=== PATIENT | male | born 1965 | race Caucasian/White ===

== ENCOUNTER 2017-09-07 15:47 | Emergency (ER) | payer OTHER, SELFPAY ==
[2017-09-07 15:49] VITALS: BP 143/83; PULSE 109; RESP 18; TEMP 36.7; O2SAT 98; BMI 25.8
--- NOTE | 2017-09-07 15:58 | RAD_ITS ---
STUDY: X-RAY CHEST REASON FOR EXAM: Male, 52 years old. Shortness of breath. TECHNIQUE: Portable AP COMPARISON: None. FINDINGS: The lungs are clear and expanded. There is no demonstrated pleural abnormality. Normal size heart. Normal mediastinum and kath. Normal visualized pulmonary arteries. Normal visualized aortic arch and descending thoracic aorta. Normal visualized thoracic spine. Normal visualized ribs, clavicles, and shoulders. There is no demonstrated abnormality of the visualized soft tissue structures of the upper abdomen. RAD/Chest 1 View (Portable) IMPRESSION: No acute cardiopulmonary process. Electronically Signed: Manju Connelly MD at 16:27 EST Tel , Service support ,
--- NOTE | 2017-09-07 15:59 | EKG12_ITS ---
Test Reason : DIZZY
--- NOTE | 2017-09-07 15:59 | CT_ITS ---
STUDY: CT ABDOMEN AND PELVIS WITH CONTRAST REASON FOR EXAM: Male, 52 years old. Nausea and vomiting for 2 days. RADIATION DOSAGE (If Supplied By Facility): CTDIvol = ( 15.35 ) mGy, DLP = ( 1067.24 ) mGycm TECHNIQUE: Transaxial images were obtained from the dome of the diaphragm to the symphysis pubis without oral contrast. 100 ml of Isovue 300 contrast was administered. Sagittal and coronal images were reconstructed. Individualized dose optimization techniques were used for this CT. COMPARISON: None. FINDINGS: The visualized lung bases are unremarkable. The visualized portions of the heart are within normal limits. There is decreased attenuation of the liver consistent with steatosis. Normal gallbladder and extrahepatic biliary system. Normal spleen. Normal pancreas. Normal bilateral adrenal glands. Normal right kidney. Normal left kidney. Normal visualized stomach. Normal small intestine. Normal colon. The appendix is visualized and appears normal. There is diffuse atherosclerotic calcification of the abdominal aorta, without a demonstrated aneurysm. Normal inferior vena cava. Normal retroperitoneum. Normal urinary bladder. Normal abdominal wall. There are diffuse degenerative changes of the visualized lumbar spine. There is a well-circumscribed round sclerotic focus within the left iliac wing that may reflect underlying bone island. CT/Abdomen/Pelvis WITH Contrast IMPRESSION: Fatty infiltration of the liver. Atherosclerosis. Degenerative changes. Electronically Signed: Manju Connelly MD at 18:24 EST Tel , Service support ,
--- NOTE | 2017-09-07 16:02 | ED.DCSUM_ITS ---
- ER Visit Summary Date of Service: 09/07/17 Chief Complaint: Abdominal pain History of Present Illness: The patient is a 52 M presenting with abdominal pain , nausea, vomiting. He states this started 2 days ago. He states he had 10 episodes of vomiting today. Denies blood in his emesis. Denies diarrhea or constipation. Denies urinary complaints. Complains of epigastric abdominal pain. He states he has felt dizzy today with no syncope. Denies chest pain. Denies sick contacts. Denies fever chills or other complaints. Physical Examination: Vitals are stable. Patient is afebrile. Alert no acute distress. HEENT exam is unremarkable. Neck is supple. Lungs are clear and equal bilaterally. Heart is regular rate and rhythm. Abdomen is soft epigastric tenderness, no guarding or rebound Extremities are unremarkable. Skin is warm and dry. Remainder of exam is unremarkable. Emergency Department Course and Treatment: Patient given IV fluids, Phenergan. He continues to complain of nausea and was given Zofran IV. EKG is sinus tachycardia rate 105. CBC chemistries unremarkable other than glucose 317. Liver lipase are normal. Troponin is negative. CT abdomen pelvis with p.o. and IV contrast shows fatty liver, degenerative changes. Chest x-ray shows no acute process. Patient continues to complain of epigastric discomfort. He is given morphine IV and GI cocktail with improvement. Repeat troponin was obtained and is negative. Patient is resting comfortably in the emergency department. He is given a prescription for Phenergan for home. Advised to follow-up with his primary care physician. Advised return to ED for worsening complaints. Disposition: Discharge home Impression: Epigastric abdominal pain, vomiting This note was generated with [employer] dictation software. It may contain incorrect words, spelling, and punctuation that were not noted in review of the chart prior to signing ED Disposition - Plan for ED Patient: Chief Complaint: Abd Pain Referrals: Delmer Pelaez MD [STAFF PHYSICIAN] -
[2017-09-07] MEDS: 0.9% Normal Saline 1,000 ML 1000 ML IV (16:17)
[2017-09-07 16:30] LABS: Absolute Lymphocyte Count 1.61 X10^3/ul (0.83-4.51); Absolute Neutrophil Count 6.4 X10^3/uL (2.0-7.7); Basophil# 0.02 X10^3/uL; Basophil% 0.2 % (0-1); Eosinophil# 0.07 X10^3/uL; Eosinophils% 0.8 % (0-5); Hematocrit 48.9 % (40-54); Lymphocyte # 1.61 X10^3/ul (4.0); Lymphocyte % 18.7 % (19-41); Mean Corp Hgb Conc 34.8 g/gl (32-36); Mean Corpuscular Hgb 30.6 pg (27.0-32.0); Mean Corpuscular Volume 88.1 fL (80-94); Mean Platelet Vol. 10.8 fl (6.2-12.0); Monocyte# 0.51 X10^3/uL; Monocyte% 5.9 % (0-10); Neutrophil % 74.3 % (47-70); Platelet Count 196 K/mm3 (150-450); RBC Distribution Width CV 12.4 % (11.6-14.6); Red Blood Count 5.55 M/mm3 (4.6-6.2); White Blood Count 8.6 K/mm3 (4.4-11.0)
[2017-09-07 16:41] LABS: POSITIVE COUNT NO; POSITIVE DIFFERENTIAL NO; POSITIVE MORPHOLOGY NO
[2017-09-07 16:55] LABS: AST(SGOT) 16 U/L (15-37); Alanine Aminotransfer ALT/SGPT 53 U/L (16-61); Albumin, Serum 4.1 g/dL (3.2-5.0); Alkaline Phosphatase 98 U/L (45-117); Anion Gap 11 (5-15); BUN 14 mg/dL (7-18); BUN/Creat Ratio 16.8 RATIO (10-20); Bilirubin, Direct 0.22 mg/dL (0.00-0.30); Calcium,Total 8.9 mg/dL (8.5-10.1); Chloride 97 mmol/L (98-107); Creatinine, Serum 0.83 mg/dL (0.70-1.30); EST Glomerular Filtration Rate 102 mL/min (>60); Est Glom Filt Rate - Afr Amer 123 mL/min (>60); Estimated Creatinine Clearance 98.43 ml/min; Globulin 3.7 g/dL (2.2-4.2); Glucose 317 mg/dL (74-106); Lipase 94 U/L (73-393); Potassium 3.7 mmol/L (3.5-5.1); Protein, Total 7.8 g/dL (6.4-8.2); Sodium Level 136 mmol/L (136-145)
[2017-09-07] MEDS: Ondansetron 4 MG/2 ML Vial IV ×2 (17:01→19:38)
[2017-09-07 19:30] VITALS: BP 163/93; PULSE 100; RESP 18; O2SAT 98
--- NOTE | 2017-09-07 20:25 | ED.DEP ---
ED Disposition - Plan for ED Patient: Chief Complaint: Abd Pain Instructions: ED Abdominal Pain Unkn Cause Prescriptions: ProMETHAzine [Phenergan] 25 mg PO Q6H PRN PRN #10 tablet PRN Reason: Nausea Referrals: Delmer Pelaez MD [STAFF PHYSICIAN] - Christoph Cody MD [Primary Care Provider] -
[2017-09-07 20:31] VITALS: BP 154/70; PULSE 95; RESP 18; O2SAT 98
== END 2017-09-07 20:32 | disposition home or self-care (01) ==
LOC: ED 16:31
PROVIDERS: Emergency Provider Emergency Medicine; Family Provider Internal Medicine; PCP Internal Medicine
DX: R10.13 Epigastric pain (principal); R11.2 Nausea with vomiting, unspecified; K76.0 Fatty (change of) liver, not elsewhere classified; E11.9 Type 2 diabetes mellitus without complications; Z79.84 Long term (current) use of oral hypoglycemic drugs; Z79.899 Other long term (current) drug therapy
CPT/HCPCS: 71045; 74177; 80048; 80076; 83690; 84484; 85025; 93005; 96361; 96374; 96375; 96376; 99284; J7030; J7050; Q9967; J2405

== ENCOUNTER 2021-01-14 15:04 | Emergency (ER) | payer OTHER, SELFPAY ==
[2021-01-14 15:05] VITALS: BP 146/84; PULSE 110; RESP 18; TEMP 36.7; O2SAT 99; BMI 24.0
[2021-01-14 15:08] VITALS: BP 146/84; PULSE 109; RESP 18; TEMP 36.7; O2SAT 97
--- NOTE | 2021-01-14 15:43 | CT_ITS ---
STUDY: CT ABDOMEN AND PELVIS WITH CONTRAST REASON FOR EXAM: Male, 55 years old. Abdominal pain -- IV PO Contrast RADIATION DOSAGE (If Supplied By Facility): CTDIvol = ( 10.40 ) mGy, DLP = ( 552.03 ) mGycm TECHNIQUE: Transaxial images were obtained from the dome of the diaphragm to the symphysis pubis without oral contrast. Oral and amp; IV Gastrografin and amp; 100mL Isovue-300 was administered. Sagittal and coronal images were reconstructed. Individualized dose optimization techniques were used for this CT. COMPARISON: None. FINDINGS: The visualized lung bases are unremarkable. The visualized portions of the heart are within normal limits. Normal liver. Normal gallbladder and extrahepatic biliary system. Normal spleen. Normal pancreas. Normal bilateral adrenal glands. Normal right kidney. Normal left kidney. Normal visualized stomach. Normal small intestine. Normal colon. There is non-visualization of the appendix. Normal abdominal aorta. Normal inferior vena cava. Normal retroperitoneum. Distended urinary bladder. Prominent heterogeneous prostate Normal abdominal wall. Normal osseous structures. CT/Abdomen/Pelvis WITH Contrast IMPRESSION: No acute intra-abdominal process is identified. Distended urinary bladder is nonspecific consider outlet obstruction. Enlarged heterogeneous prostate may be the source of such an outlet obstruction. Prominent stool burden. Electronically Signed: Frantz William MD at 17:59 EDT Tel , Service support ,
[2021-01-14] MEDS: 0.9% Normal Saline 1,000 ML 1000 ML IV (16:00)
[2021-01-14] MEDS: Ondansetron 4 MG/2 ML Vial IV (16:00)
--- NOTE | 2021-01-14 16:07 | EDS_ITS ---
HPI History of Present Illness Chief Complaint: General Illness Informant: patient Onset/Context/Timing Onset: Yesterday Context: Sudden Onset Timing: Continuous Quality: Lightheadedness Location: Generalized Worsened by: Standing Relieved by: Nothing Associated Symptoms Associated Symptoms: Dry heaves Narrative Narrative: Patient presents with nausea, lightheadedness, and dizziness that began yesterday. Patient states he feels lightheaded all over. Patient states this is worse with standing. Patient admits to some nausea and dry heaves. Patient denies any hematemesis or coffee-ground emesis. Patient also states he has had a 15 to 20 pound weight loss in the past month. Patient states he has been out of his Metformin because his primary care physician retired and he has not established with a new primary care physician. Patient states that he has been monitoring his sugars and controlling them with his diet. [facility] Medical History (Updated 01/14/21 @ 18:[address] Owen Hebert DO) Diabetes History of open sigmoidectomy Hypercholesteremia Home Medications metformin 500 mg PO DAILY 09/07/17 [History Last Taken Unknown] pravastatin 20 mg PO DAILY 09/07/17 [History Last Taken Unknown] promethazine 25 mg PO Q6H PRN PRN #10 tablet 09/07/17 [Rx Last Taken Unknown] ondansetron 4 mg PO Q8H PRN PRN #10 tab 01/14/21 [Rx Last Taken Unknown] Allergy/AdvReac Type Severity Reaction Status Date / Time No Known Allergies Allergy Verified 09/07/17 15:51 Social History Smoking Status: Former smoker ROS ROS ED Constitutional Constitutional ED: Reports chills and subjective; Denies fever(s) Eyes Eyes: Denies blurry vision or change in vision ENT ENT ED: Denies rhinorrhea or sore throat Cardiovascular Cardiovascular: Denies chest pain or palpitations Respiratory/Chest Respiratory/Chest: Denies cough or dyspnea Gastrointestinal Gastrointestinal: Reports nausea and vomiting Genitourinary Genitourinary ED: Denies dysuria or hematuria Musculoskeletal Musculoskeletal: Denies back pain or neck pain Integumentary Denies abscess or rash Neurologic Neurologic: Reports weakness; Denies headache(s) Allergic/Immunologic Allergic/Immunologic ED: Denies mouth swelling or urticaria EXAM Physical Exam Const Vital Signs: 01/14/21 15:05 01/14/21 15:08 01/14/21 15:37 Temperature 98.0 F 98.0 F Temperature Source Temporal Temporal Pulse Rate 110 H 109 H Respiratory Rate 18 18 Respiratory Effort Normal Non-Labored Respiratory Pattern Normal Blood Pressure 146/84 H 146/84 H Blood Pressure Mean 104 104 Pulse Ox 99 97 Oxygen Delivery Method Room Air Room Air Positive well nourished and well developed General Appearance ED: well developed HEENT Reports moist mucous membranes Neck supple and no JVD Resp normal respiratory effort and clear to auscultation bilaterally Cardio regular rate, regular rhythm and no murmurs GI normal to inspection, nondistended, normoactive bowel sounds Palpation: soft and tender suprapubic; Negative for guarding or rebound tenderness present Extremity normal to inspection General Extremety ED: Negative for edema or tenderness General Extremity: Negative for edema Neuro oriented x3, CN's II-XII intact bilaterally and no sensory deficits noted Sensorium / Orientation: alert Motor Exam: strength 5/5 throughout Psych mental status grossly normal Skin no rashes or lesions noted MDM MDM MDM Narrative Medical decision making narrative: Patient was given IV fluids and Zofran. CBC shows a slight leukocytosis of 11.8. Comprehensive metabolic profile was within normal limits with the exception of a slightly elevated glucose of 223. Anion gap was normal. Lipase was normal. Urinalysis does not show any evidence of urinary tract infection. CT scan of the abdomen pelvis was obtained. There is no acute intra-abdominal process noted. There is a distended bladder. Because of this a bladder scan was performed. There is over 800 cc of urine in the bladder. Patient is resting comfortably. Patient was instructed to follow-up with his primary care physician in 5 to 7 days. Patient understood and was agreeable with the plan. All questions were answered. Lab Data Attestation: I reviewed the patient's lab results. Labs: Laboratory Results - last 24 hr 01/14/21 01/14/21 01/14/21 15:50 15:57 15:57 WBC 11.8 H RBC 5.60 Hgb 16.4 Hct 47.1 MCV 84.1 MCH 29.3 MCHC 34.8 RDW Std Deviation 36.4 RDW Coeff of Celia 12.1 Plt Count 286 MPV 9.4 Immature Gran % (Auto) 0.500 Neut % (Auto) 85.4 H Lymph % (Auto) 10.3 L [place] % (Auto) 3.6 Eos % (Auto) 0.0 Baso % (Auto) 0.2 Absolute Neuts (auto) 10.1 H Absolute Lymphs (auto) 1.22 Nucleated RBC % 0 Sodium 137 Potassium 3.5 Chloride 98 Carbon Dioxide 29.0 Anion Gap 10 BUN 14 Creatinine 0.77 Estim Creat Clear Calc 102.40 Est GFR (MDRD) Af Amer 134 Est GFR (MDRD) Non-Af 111 BUN/Creatinine Ratio 18.3 Glucose 223 H Calcium 9.1 Total Bilirubin 0.70 AST 13 L ALT 24 Alkaline Phosphatase 87 Total Protein 7.6 Albumin 3.9 Globulin 3.7 Albumin/Globulin Ratio 1.1 Lipase 43 L Urine Color Yellow Urine Clarity Sl. Cloudy Urine pH 6.5 Ur Specific [place] 1.015 Urine Protein 30 H Urine Glucose (UA) 1000 H Urine Ketones 150 A* Urine Occult Blood Negative Urine Nitrite Negative Urine Bilirubin Negative Urine Urobilinogen 1 H Ur Leukocyte Esterase Negative Urine RBC 0 SEEN Urine WBC 0 SEEN Ur Squamous Epith Cells 0-5 SEEN Amorphous Sediment 1+ URATE Urine Bacteria 0 SEEN Hyaline Casts 0-5 SEEN Urine Mucus 3+ Radiography Diagnostic Testing: Radiology Impression Abdomen/Pelvis CT 01/14/21 15:43 IMPRESSION: No acute intra-abdominal process is identified. Distended urinary bladder is nonspecific consider outlet obstruction. Enlarged heterogeneous prostate may be the source of such an outlet obstruction. Prominent stool burden. Electronically Signed: Frantz William MD at 17:59 EDT Tel , Service support , Discharge Plan Triage Chief Complaint: General Illness ED Provider: Owen Hebert Dx/Rx/DC Orders Clinical Impression: Intermittent lightheadedness, Abdominal pain, Urinary retention Instructions: ED Dizziness, Uncertain Cause, ED Urinary Retention, Male Prescriptions: New ondansetron [ondansetron] 4 MG tablet 4 mg PO Q8H PRN PRN (Reason: Nausea) Qty: 10 RF: 0 No Action pravastatin 20 MG tablet 20 mg PO DAILY RF: 0 metformin 500 MG tablet 500 mg PO DAILY RF: 0 promethazine 25 MG tablet 25 mg PO Q6H PRN PRN (Reason: Nausea) Qty: 10 RF: 0 Primary Care Provider: Christoph Cody Referrals: Christoph Cody MD [Primary Care Provider] - 3-5 Days Disposition Disposition: Home, self care
[2021-01-14 16:08] LABS: Bacteria 0 SEEN /hpf (None Seen); Red Blood Cells-Urine 0 SEEN /hpf (0-5); White Blood Cells 0 SEEN /hpf (0-5)
[2021-01-14 16:10] LABS: Absolute Lymphocyte Count 1.22 X10^3/uL (0.83-4.51); Absolute Neutrophil Count 10.1 X10^3/uL (2.0-7.7); Basophil# 0.02 X10^3/uL; Basophil% 0.2 % (0-1); Hematocrit 47.1 % (40-54); Hemoglobin 16.4 g/dL (13.0-16.5); Lymphocyte # 1.22 X10^3/ul (0.83-4.51); Lymphocyte % 10.3 % (19-41); Mean Corp Hgb Conc 34.8 g/dL (32-36); Mean Corpuscular Hgb 29.3 pg (27.0-32.0); Mean Corpuscular Volume 84.1 fL (80-94); Mean Platelet Vol. 9.4 fl (6.2-12.0); Monocyte# 0.42 X10^3/uL; Monocyte% 3.6 % (0-10); NRBC Flagged by Analyzer 0 % (0-5); Neutrophil # 10.07 X10^3/uL (2.7-7.7); Neutrophil % 85.4 % (47-70); Platelet Count 286 K/mm3 (150-450); RBC Distribution Width CV 12.1 % (11.6-14.6); RBC Distribution Width SD 36.4 fl (35.1-43.9); White Blood Count 11.8 K/mm3 (4.4-11.0)
[2021-01-14 16:14] LABS: Color, Urine Yellow (Yellow); Glucose, Dipstick 1000 mg/dl (Normal); Leukocyte Esterase-Dipstick Negative /ul (Negative); Nitrite-Dipstick Negative (Negative); Occult Blood-Urine Negative /ul (Negative); Protein-Dipstick 30 mg/dl (Negative); Specific Gravity, Urine 1.015 (1.002-1.030); Urine Bilirubin Dipstick Negative (Negative); Urine Clarity Sl. Cloudy (Clear); Urine Urobilinogen 1 mg/dl (Normal); Urine pH 6.5 (5.0 - 8.0)
[2021-01-14 16:17] LABS: Ketone-Dipstick 150 mg/dl (Negative)
[2021-01-14 16:22] LABS: Amorphous Sediment 1+ URATE; Hyaline Cast 0-5 SEEN /lpf (0-5); Mucous, Urine 3+ /hpf (<or=2+); Squamous Epithelial Cells - UA 0-5 SEEN /hpf (0-5)
[2021-01-14 16:42] LABS: ALB/GLOB Ratio 1.1 RATIO (0.9-2.4); AST(SGOT) 13 U/L (15-37); Alanine Aminotransfer ALT/SGPT 24 U/L (16-61); Albumin, Serum 3.9 g/dL (3.2-5.0); Alkaline Phosphatase 87 U/L (45-117); Anion Gap 10 (5-15); BUN 14 mg/dL (7-18); BUN/Creat Ratio 18.3 RATIO (10-20); Calcium,Total 9.1 mg/dL (8.5-10.1); Chloride 98 mmol/L (98-107); Creatinine, Serum 0.77 mg/dL (0.70-1.30); EST Glomerular Filtration Rate 111 mL/min (>60); Est Glom Filt Rate - Afr Amer 134 mL/min (>60); Globulin 3.7 g/dL (2.2-4.2); Glucose 223 mg/dL (74-106); Lipase 43 U/L (73-393); Potassium 3.5 mmol/L (3.5-5.1); Protein, Total 7.6 g/dL (6.4-8.2); Sodium Level 137 mmol/L (136-145)
[2021-01-14 19:21] VITALS: BP 136/74; PULSE 79; RESP 16; O2SAT 98
== END 2021-01-14 19:23 | disposition home or self-care (01) ==
PROVIDERS: Emergency Provider Emergency Medicine; PCP Internal Medicine
DX: R42 Dizziness and giddiness (principal); R10.9 Unspecified abdominal pain; R33.9 Retention of urine, unspecified; Z87.891 Personal history of nicotine dependence
CPT/HCPCS: 74177; 80053; 81001; 83690; 85025; 96361; 96374; 99283; J7030; Q9967; A4216; J2405

== ENCOUNTER 2021-02-05 02:05 | Emergency (ER) | payer OTHER, SELFPAY ==
[2021-02-05 02:09] VITALS: BP 107/62; PULSE 67; RESP 16; TEMP 36.6; O2SAT 98; BMI 22.6
--- NOTE | 2021-02-05 02:23 | RAD_ITS ---
STUDY: X-RAY - UNILATERAL RIBS ( RIGHT ) WITH CHEST REASON FOR EXAM: Male, 55 years old. fall/injury TECHNIQUE - RIBS: 4 view(s) of the ribs. TECHNIQUE - CHEST: Single frontal view of the chest. COMPARISON: None. FINDINGS - RIBS: Nondisplaced fracture of the posterior right ninth rib fracture. FINDINGS - CHEST: The lungs are clear and expanded. There is no demonstrated pleural abnormality. Normal size heart. Normal mediastinum and kath. Normal visualized pulmonary arteries. Normal visualized aortic arch and descending thoracic aorta. Normal visualized thoracic spine. Normal visualized ribs, clavicles, and shoulders. There is no demonstrated abnormality of the visualized soft tissue structures of the upper abdomen. RAD/Ribs Uni Min 3V w/PA Chest IMPRESSION: RIBS: Posterior right ninth rib fracture CHEST: Normal x-ray examination of the chest. Electronically Signed: Himanshu Guerrero DO at 3:27 EDT Tel , Service support ,
--- NOTE | 2021-02-05 02:29 | EX.ED.DYSGE1 ---
HPI History of Present Illness Chief Complaint: Syncope Informant: patient and spouse/S.O. Onset/Context/Timing Onset: Today Current Severity: Mild Maximum Severity: Severe Worsened by: standing Relieved by: lying down Narrative Narrative: 55-year-old patient with chronic vomiting, in process of getting worked up for possible gastroparesis, has been prepping for a colonoscopy for the past 24 hours or so, which has been giving him lots of clear watery diarrhea. He has not been increasing his fluid intake which is already been relatively limited. He got up from bed this morning around 2 AM to have diarrhea, was lightheaded, it progressively got worse to the point where he fell against the tub and then lost consciousness collapsing to the floor. His was concerned and called EMS, patient was awake and fine except for some soreness in his right posterior rib cage and refused EMS, so they helped him into his car and his brought him here. Patient feels better now, he has no other new symptoms except for the soreness in his right posterior rib cage. He states it hurts a little to take a breath but he is not dyspneic. [facility] Medical History Diabetes History of open sigmoidectomy Hypercholesteremia Home Medications metformin 1,000 mg PO DAILY 09/07/17 [History Last Taken Unknown] pravastatin 20 mg PO DAILY 09/07/17 [History Last Taken Unknown] promethazine 25 mg PO Q6H PRN PRN #10 tablet 09/07/17 [Rx Last Taken Unknown] ondansetron 4 mg PO Q8H PRN PRN #10 tab 01/14/21 [Rx Last Taken Unknown] aspirin 1 tab PO DAILY 02/05/21 [History Last Taken Unknown] fluoxetine [Prozac] 10 mg PO DAILY 02/05/21 [History Last Taken Unknown] pantoprazole 20 mg PO DAILY 02/05/21 [History Last Taken Unknown] Allergy/AdvReac Type Severity Reaction Status Date / Time No Known Allergies Allergy Verified 02/05/21 02:06 Surgical History (Updated 02/05/21 @ 02:12 by Gordy Junior) H/O hernia repair Social History Smoking Status: Former smoker ROS ROS ED Constitutional Constitutional ED: Reports malaise; Denies chills or fever(s) Eyes Eyes: Denies change in vision or diplopia ENT ENT ED: Denies rhinorrhea or sore throat Cardiovascular Cardiovascular: Denies chest pain or palpitations Respiratory/Chest Respiratory/Chest: Denies cough or dyspnea Gastrointestinal Gastrointestinal: Reports as per HPI, diarrhea and vomiting; Denies abdominal pain or nausea Genitourinary Genitourinary ED: Denies dysuria or hematuria Musculoskeletal Musculoskeletal: Reports as per HPI and back pain; Denies neck pain Integumentary Denies abscess or rash Neurologic Neurologic: Denies headache(s), paresthesias or weakness Psychiatric Psychiatric: Denies anxiety or suicidal thoughts EXAM Physical Exam Const Vital Signs: 02/05/21 02:09 02/05/21 02:13 Temperature 97.9 F Temperature Source Oral Pulse Rate 67 Respiratory Rate 16 Respiratory Effort Normal Respiratory Pattern Normal Blood Pressure 107/62 Blood Pressure Mean 77 Pulse Ox 98 Oxygen Delivery Method Room Air Positive well nourished and well developed General Appearance ED: well developed and NAD HEENT Reports moist mucous membranes normocephalic and atraumatic Eyes PERRL and EOMs intact bilaterally Neck full ROM and supple Resp normal respiratory effort and clear to auscultation bilaterally Cardio regular rate, regular rhythm and no murmurs GI non-tender and non-distended Auscultation: normoactive bowel sounds Palpation: soft Back/Spine no CVA tenderness and normal ROM Back/Spine Narrative: Tender right posterior inferior lower rib cage, no spinal tenderness. No crepitance, no flail, no subcutaneous emphysema, no obvious step-off palpated. No obvious evidence of injury/trauma. General Back: other FROM Extremity normal to inspection General Extremety ED: Negative for edema, pulses abnormal or tenderness General Extremity: Negative for edema or pulses abnormal Neuro oriented x3, CN's II-XII intact bilaterally and no sensory deficits noted Sensorium / Orientation: awake and alert Motor Exam: strength 5/5 throughout Skin no rashes or lesions noted and no wounds MDM MDM MDM Narrative Medical decision making narrative: There does appear to be a single rib fracture on the x-ray series, management is symptom control. I do not think he requires narcotic pain medication, especially with his tendency to become lightheaded already. is very concerned about the fact that he is chronically orthostatic, and his safety going home. Given an additional liter of IV fluids in addition to the initial 1, and reassured her that in my opinion it is in his best interest to get tanked up with regards to hydration tonight, continue his prep which he did here in the ER since his went and got the rest of it from home, and proceed with the scheduled studies so that he can get closer to a cause and treatment. She understood this and agreed. After IV fluids, he was able to stand up without feeling lightheaded and discharged home in stable improved condition. Radiography Diagnostic Testing: Radiology Impression Ribs w/Chest X-Ray 02/05/21 02:23 IMPRESSION: RIBS: Posterior right ninth rib fracture CHEST: Normal x-ray examination of the chest. Electronically Signed: Himanshu Guerrero DO at 3:27 EDT Tel , Service support , Discharge Plan Triage Chief Complaint: Syncope ED Provider: Fred Guidry Dx/Rx/DC Orders Clinical Impression: Orthostatic syncope, Mild dehydration, Closed fracture of rib of right side Instructions: Rib Fracture (Broken Rib), Orthostatic Hypotension Prescriptions: No Action pravastatin 20 MG tablet 20 mg PO DAILY RF: 0 metformin 500 MG tablet 1,000 mg PO DAILY RF: 0 promethazine 25 MG tablet 25 mg PO Q6H PRN PRN (Reason: Nausea) Qty: 10 RF: 0 ondansetron [ondansetron] 4 MG tablet 4 mg PO Q8H PRN PRN (Reason: Nausea) Qty: 10 RF: 0 pantoprazole 20 mg tablet,delayed release (DR/EC) 20 mg PO DAILY RF: 0 fluoxetine [Prozac] 10 mg Capsule 10 mg PO DAILY RF: 0 aspirin 81 mg tablet,chewable 1 tab PO DAILY RF: 0 Primary Care Provider: Enrique Valenzuela Referrals: Enrique Valenzuela MD [Primary Care Provider] - 1-2 Days if not improving (Follow-up for scheduled studies in the morning) Disposition Disposition: Home, Self Care
[2021-02-05] MEDS: 0.9% Normal Saline 1,000 ML 999 ML IV ×2 (02:44→03:59)
[2021-02-05 05:16] VITALS: BP 116/72; PULSE 75; RESP 16; O2SAT 98
== END 2021-02-05 05:17 | disposition home or self-care (01) ==
PROVIDERS: Emergency Provider Emergency Medicine; PCP Family Medicine
DX: R55 Syncope and collapse (principal); E86.0 Dehydration; S22.31XA Fracture of one rib, right side, initial encounter for closed fracture; E11.9 Type 2 diabetes mellitus without complications; E78.00 Pure hypercholesterolemia, unspecified; Z87.891 Personal history of nicotine dependence; Z79.899 Other long term (current) drug therapy; Z79.84 Long term (current) use of oral hypoglycemic drugs; Z79.82 Long term (current) use of aspirin; W19.XXXA Unspecified fall, initial encounter
CPT/HCPCS: 71101; 96360; 96361; 99282; J7030; A4216

== ENCOUNTER → 2021-02-05 09:45 | Outpatient (CLI) | payer OTHER, SELFPAY ==
[2021-02-05 02:09] VITALS: BMI 22.6
--- NOTE | 2021-02-05 09:55 | RAD_ITS ---
STUDY: AIR CONTRAST UPPER GI SERIES REASON FOR EXAM: Male, 55 years old. EPIGASTRIC PAIN FLUOROSCOPY TIME (if supplied): (53 seconds) minutes/seconds. 9 images were obtained. TECHNIQUE: SINGLE CONTRAST AND AIR CONTRAST FLUOROSCOPIC IMAGES. COMPARISON: None. FINDINGS: The cervical esophagus demonstrates normal motility without aspiration. There is no stricture or extrinsic mass effect. No intraluminal polypoid mass is identified. The thoracic esophagus distends well without stricture or mucosal fold thickening. No mucosal ulcerations are identified. There is no extrinsic mass effect. There are no diverticula. No hiatal hernia or gastroesophageal reflux was identified. The stomach distends well without mucosal fold thickening or mucosal ulceration. There is no intraluminal mass. The duodenal bulb is freely distensible without deformity or ulceration. The duodenal sweep is normal in position and caliber. RAD/Upper GI w/BA Swallow IMPRESSION: Normal air-contrast upper GI series. Electronically Signed: Migue Ponce MD at 13:43 EDT , Service support ,
== END ==
LOC: RAD 09:46
PROVIDERS: PCP Family Medicine; Referring Provider Surgery; Visit Provider Surgery
DX: R11.0 Nausea (principal); R10.13 Epigastric pain
CPT/HCPCS: 74246

== ENCOUNTER 2021-03-07 07:40 | Emergency (ER) | payer OTHER, SELFPAY ==
[2021-03-07 07:41] VITALS: BP 94/69; PULSE 106; RESP 16; TEMP 36.1; O2SAT 100; BMI 20.7
--- NOTE | 2021-03-07 07:57 | EKG12_ITS ---
Test Reason : SYNCOPE Blood Pressure : / mmHG Vent. Rate : 100 BPM Atrial Rate : 100 BPM P-R Int : 126 ms QRS Dur : 086 ms QT Int : 378 ms P-R-T Axes : 076 083 098 degrees QTc Int : 487 ms Normal sinus rhythm Prolonged QT Abnormal ECG Confirmed by KELVIN LAWLER, EROS ([id number]), makeup editor JULIET PERAZA ([id number]) on 03/10/2021 9:48:14 AM Referred By: GREGORIA Confirmed By:EROS WARREN MD
[2021-03-07] MEDS: 0.9% Normal Saline 1,000 ML 1000 ML IV (08:09)
--- NOTE | 2021-03-07 08:12 | RAD_ITS ---
STUDY: X-RAY CHEST REASON FOR EXAM: Male, 55 years old. Chest pain TECHNIQUE: Single AP portable view of the chest. COMPARISON: February 05, 2021 chest x-ray FINDINGS: The lungs are clear and expanded. There is no demonstrated pleural abnormality. Normal size heart. Normal mediastinum and kath. Normal visualized pulmonary arteries. Normal visualized aortic arch and descending thoracic aorta. Normal visualized thoracic spine. Normal visualized ribs, clavicles, and shoulders. There is no demonstrated abnormality of the visualized soft tissue structures of the upper abdomen. RAD/Chest 1 View (Portable) IMPRESSION: Normal x-ray examination of the chest. Electronically Signed: Kendra Pennington MD at 8:44 EDT Tel , Service support ,
[2021-03-07 08:15] VITALS: BP 142/88; PULSE 92; RESP 15; O2SAT 100
[2021-03-07 08:15] LABS: Absolute Lymphocyte Count 1.83 X10^3/uL (0.83-4.51); Absolute Neutrophil Count 6.6 X10^3/uL (2.0-7.7); Basophil# 0.02 X10^3/uL; Basophil% 0.2 % (0-1); Eosinophil# 0.01 X10^3/uL; Eosinophils% 0.1 % (0-5); Hematocrit 46.6 % (40-54); Hemoglobin 15.8 g/dL (13.0-16.5); Lymphocyte # 1.83 X10^3/ul (0.83-4.51); Lymphocyte % 19.7 % (19-41); Mean Corp Hgb Conc 33.9 g/dL (32-36); Mean Corpuscular Hgb 29.4 pg (27.0-32.0); Mean Corpuscular Volume 86.8 fL (80-94); Mean Platelet Vol. 9.5 fl (6.2-12.0); Monocyte# 0.83 X10^3/uL; Monocyte% 8.9 % (0-10); NRBC Flagged by Analyzer 0 % (0-5); Neutrophil # 6.59 X10^3/uL (2.7-7.7); Neutrophil % 70.8 % (47-70); Platelet Count 352 K/mm3 (150-450); RBC Distribution Width CV 13.2 % (11.6-14.6); RBC Distribution Width SD 41.4 fl (35.1-43.9); Red Blood Count 5.37 M/mm3 (4.6-6.2); White Blood Count 9.3 K/mm3 (4.4-11.0)
--- NOTE | 2021-03-07 08:15 | EX.ED.DYSGE1 ---
HPI History of Present Illness Chief Complaint: Syncope Informant: patient and spouse/S.O. Onset/Context/Timing Onset: Today and Month(s) Context: Sudden Onset Timing: Intermittent Current Severity: Gone Maximum Severity: Moderate Narrative Narrative: 55-year-old noninsulin-dependent diabetic male with a history of diabetic neuropathy. Has had syncopal episodes since December. He has been evaluated for this. He also has a pending evaluation for possible Pineda syndrome. Basically over the last several months he has had episodes of orthostatic hypotension. If he stands up quickly from either seated or lying position he gets lightheaded and goes down and sometimes even passes out. 1 time in the last 2 months he fell and broke a rib. Today he is fallen several times with getting up quickly. He is also had intermittent nausea over the last 1 to 2 months which were working up for possible gastroparesis. He denies vomiting. He denies diarrhea. He denies melena. He denies headache. He denies chest pain. Prior similar symptoms: Yes Recent Illness/Hospitalization: No PFSH PFS Medical History Anxiety Diabetes History of open sigmoidectomy Hypercholesteremia Syncope Home Medications metformin 1,000 mg PO DAILY 09/07/17 [History Last Taken Unknown] pravastatin 20 mg PO DAILY 09/07/17 [History Last Taken Unknown] ondansetron 4 mg PO Q8H PRN PRN #10 tab 01/14/21 [Rx Last Taken Unknown] aspirin 1 tab PO DAILY 02/05/21 [History Last Taken Unknown] fluoxetine [Prozac] 20 mg PO DAILY 02/05/21 [History Last Taken Unknown] pantoprazole 20 mg PO DAILY 02/05/21 [History Last Taken Unknown] Allergy/AdvReac Type Severity Reaction Status Date / Time No Known Allergies Allergy Verified 03/07/21 07:44 Surgical History H/O hernia repair Social History Smoking Status: Former smoker ROS ROS ED ROS Narrative Nausea and lightheadedness. Constitutional Constitutional ED: Denies chills or fever(s) Eyes Eyes: Denies change in vision ENT ENT ED: Denies ear pain or sore throat Cardiovascular Cardiovascular: Denies chest pain Respiratory/Chest Respiratory/Chest: Denies cough or dyspnea Gastrointestinal Gastrointestinal: Reports nausea; Denies abdominal pain, constipation, diarrhea, melena or vomiting Genitourinary Genitourinary ED: Denies dysuria Musculoskeletal Musculoskeletal: Denies myalgias Integumentary Denies rash Neurologic Neurologic: Denies headache(s) Psychiatric Psychiatric: Denies depression Endocrine Endocrinology: Denies polyuria Allergic/Immunologic Allergic/Immunologic ED: Denies urticaria EXAM Physical Exam Narrative Exam Narrative: Well-appearing middle-age male. Initial blood pressure 94/69. Currently his blood pressures over 100 systolic. He is in no distress. at bedside. H EENT exam atraumatic. Pupils are round reactive light. Moist use membranes. Neck nontender. Lungs clear to auscultation bilaterally. Heart regular rate and rhythm. Rate of 100. No murmur. Chest wall nontender. No signs of trauma. Abdomen soft nontender normal bowel sounds no peritoneal signs. Patient moving all 4 extremities. They are nontender. No deformity. Normal range of motion. Normal strength. Back nontender. Currently has no rib tenderness. Neurologically is awake and alert with no focal motor deficits. 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 Dorsi plantar flexion. Normal speech. Const Vital Signs: 03/07/21 07:41 03/07/21 07:52 03/07/21 08:04 Temperature 97.0 F L Temperature Source Temporal Pulse Rate 106 H Respiratory Rate 16 Respiratory Effort Normal Respiratory Pattern Normal Blood Pressure 94/69 Blood Pressure Mean 77 Pulse Ox 100 Oxygen Delivery Method Room Air Room Air 03/07/21 08:15 Temperature Temperature Source Pulse Rate 92 Respiratory Rate 15 Respiratory Effort Respiratory Pattern Blood Pressure 142/88 H Blood Pressure Mean 106 Pulse Ox 100 Oxygen Delivery Method Room Air Positive well nourished and well developed; Negative for unkempt General Appearance ED: well developed and NAD; Negative for unkempt or pallor HEENT Reports moist mucous membranes Negative for trauma or tenderness Eyes PERRL and EOMs intact bilaterally Neck no lymphadenopathy and supple General: Negative for tenderness Chest Wall inspection of chest normal and palpation of chest normal Resp normal respiratory effort and clear to auscultation bilaterally Cardio regular rate, regular rhythm, S1 normal heart sound, S2 normal heart sound and no murmurs GI normal to inspection, nondistended, normoactive bowel sounds, non-tender, non-distended and no masses Inspection: Negative for abdominal distention Auscultation: normoactive bowel sounds Palpation: soft; Negative for tender, guarding or rebound tenderness present Back/Spine no CVA tenderness Extremity normal to inspection General Extremety ED: Negative for edema or tenderness General Extremity: Negative for edema Neuro oriented x3 and CN's II-XII intact bilaterally Sensorium / Orientation: alert; Negative for orientation impaired, lethargic or stuporous Motor Exam: strength 5/5 throughout Psych mental status grossly normal Appearance: Negative for unkempt Mood & Affect: Negative for depressed or tearful Skin no rashes or lesions noted, no wounds and skin turgor normal General Skin Exam: Negative for jaundice or pallor MDM MDM MDM Narrative Medical decision making narrative: 55-year-old diabetic male history of orthostatic hypotension. His history today is classic for orthostatic hypotension. He gets up quickly gets lightheaded and goes down sometimes even loses consciousness. says is very brief and only lasts a few seconds. His exam is benign today. Will undergo a cardiac work-up. Repeat exam patient is doing well at 8:40 AM. He and his had a long discussion. He needs to take his time when transferring from a lying or sitting to a standing position. Continue his fluid intake. And follow-up for his outpatient work-up. Lab Data Attestation: I reviewed the patient's lab results. Lab results narrative: CBC normal white count of 9 hemoglobin of 15. No bands. Chemistries unremarkable gap of 9. Creatinine 0.7. Glucose 188. Troponin normal. 10. Lactic acid normal 1.6. Labs: Laboratory Results - last 24 hr 03/07/21 03/07/21 03/07/21 08:05 08:05 08:05 WBC 9.3 RBC 5.37 Hgb 15.8 Hct 46.6 MCV 86.8 MCH 29.4 MCHC 33.9 RDW Std Deviation 41.4 RDW Coeff of Celia 13.2 Plt Count 352 MPV 9.5 Immature Gran % (Auto) 0.300 Neut % (Auto) 70.8 H Lymph % (Auto) 19.7 Stark % (Auto) 8.9 Eos % (Auto) 0.1 Baso % (Auto) 0.2 Absolute Neuts (auto) 6.6 Absolute Lymphs (auto) 1.83 Nucleated RBC % 0 Sodium 134 L Potassium 3.4 L Chloride 96 L Carbon Dioxide 29.0 Anion Gap 9 BUN 18 Creatinine 0.72 Estim Creat Clear Calc 98.77 Est GFR (MDRD) Af Amer 145 Est GFR (MDRD) Non-Af 120 BUN/Creatinine Ratio 25.1 H Glucose 188 H Lactic Acid 1.6 Calcium 9.5 Troponin I High Sens 10.3 Radiography Chest X-Ray - ED: 1 View, Read by ED Physician, Heart, Lungs, Mediastinum and No Acute Disease Diagnostic Testing: Portable 1 view chest x-ray interpreted by myself shows no acute abnormality. Normal cardiac silhouette. Normal lung boyd. It does appear has had a prior broken ninth rib on the right. There is no new acute rib fractures. Rhythm Strip Rhythm Strip: Sinus Rhythm Rate: 100 Ectopy: None EKG Initial EKG: Attestation: I personally reviewed and interpreted this EKG as follows: Interpretation: Sinus Rhythm and No Acute Injury Pattern Comments: Normal sinus rhythm rate of 100 no acute signs of DE nor ischemia nor dysrhythmia. Discharge Plan Triage Chief Complaint: Syncope ED Provider: Amos Vang Dx/Rx/DC Orders Clinical Impression: Orthostatic syncope, Orthostatic hypotension Instructions: ED Hypotension, Orthostatic Prescriptions: No Action pravastatin 20 MG tablet 20 mg PO DAILY RF: 0 metformin 500 MG tablet 1,000 mg PO DAILY RF: 0 ondansetron [ondansetron] 4 MG tablet 4 mg PO Q8H PRN PRN (Reason: Nausea) Qty: 10 RF: 0 pantoprazole 20 mg tablet,delayed release (DR/EC) 20 mg PO DAILY RF: 0 fluoxetine [Prozac] 10 mg Capsule 20 mg PO DAILY RF: 0 aspirin 81 mg tablet,chewable 1 tab PO DAILY RF: 0 Primary Care Provider: Enrique Valenzuela Referrals: Enrique Valenzuela MD [Primary Care Provider] - As Needed Activity Restrictions/Additional Instructions: Plenty of fluids and rest. Anytime you go from either a seated or lying to a upright position you have to do it slowly. You should do it in stages for her from lying you should go to a sitting position if you are sitting you need to be sitting upright for several minutes and then slowly get up if you feel dizzy sit back down. Anytime your pressure dropped suddenly you may fall or pass out. Follow-up with your doctors to follow through with the Pots work-up. Disposition Disposition: Home, Self Care
[2021-03-07 08:32] LABS: Anion Gap 9 (5-15); BUN 18 mg/dL (7-18); BUN/Creat Ratio 25.1 RATIO (10-20); Calcium,Total 9.5 mg/dL (8.5-10.1); Chloride 96 mmol/L (98-107); Creatinine, Serum 0.72 mg/dL (0.70-1.30); EST Glomerular Filtration Rate 120 mL/min (>60); Est Glom Filt Rate - Afr Amer 145 mL/min (>60); Estimated Creatinine Clearance 98.77 ml/min; Glucose 188 mg/dL (74-106); Potassium 3.4 mmol/L (3.5-5.1); Sodium Level 134 mmol/L (136-145); Troponin-I HS 10.3 pg/mL (3.0-78.5)
[2021-03-07 08:37] LABS: Lactic Acid 1.6 mmol/L (0.4-1.9)
[2021-03-07 08:50] VITALS: BP 161/99; PULSE 93; RESP 17; O2SAT 99
== END 2021-03-07 08:52 | disposition home or self-care (01) ==
LOC: ED 08:26
PROVIDERS: Emergency Provider Emergency Medicine; PCP Family Medicine
DX: I95.1 Orthostatic hypotension (principal); E11.40 Type 2 diabetes mellitus with diabetic neuropathy, unspecified; E78.00 Pure hypercholesterolemia, unspecified; Z79.84 Long term (current) use of oral hypoglycemic drugs; Z79.82 Long term (current) use of aspirin; Z87.891 Personal history of nicotine dependence; Z79.899 Other long term (current) drug therapy
CPT/HCPCS: 71045; 80048; 83605; 84484; 85025; 93005; 99283; J7030; A4216

== ENCOUNTER 2024-09-26 18:39 | Observation (INO) | payer OTHER, SELFPAY ==
[2024-09-26] VITALS (12 sets, daily range): BP systolic 99–192; BP diastolic 76–117; PULSE 89–155; RESP 12–18; TEMP 36.7–36.9; O2SAT 95–100; BMI 27.3; BMI 24.9
--- NOTE | 2024-09-26 19:03 | EKG12_ITS ---
Test Reason : STROKE Blood Pressure : */* mmHG Vent. Rate : 91 BPM Atrial Rate : 91 BPM P-R Int : 138 ms QRS Dur : 78 ms QT Int : 402 ms P-R-T Axes : 56 64 18 degrees QTcB Int : 494 ms Sinus rhythm with Premature atrial complexes Nonspecific ST and T wave abnormality Prolonged QT Abnormal ECG Confirmed by Igor Liang ([id number]), tape editor JULIET PERAZA ([id number]) on 09/30/2024 10:38:02 AM Referred By: Delmer Dean Confirmed By: Igor Liang
--- NOTE | 2024-09-26 19:03 | CT_ITS ---
PROCEDURE: STROKE BRAIN/HEAD WITHOUT CONT REASON FOR EXAM: Neuro deficit, acute, stroke suspected TECHNIQUE: Noncontrast head CT with coronal and sagittal reformatted images COMPARISON: None. FINDINGS: No intracranial hemorrhage, mass effect or CT evidence of large vascular territory acute infarct. The ventricles are within limits and midline. Small lacunar infarct suggested left thalamus axial 20 and lacunar infarcts bilateral periventricular white matter axial 25 may be remote, clinically correlate. Right greater than left external auditory canal cerumen suggested. The paranasal sinuses, mastoids and orbits appear within limits. CT/STROKE Brain/Head without Cont IMPRESSION: No intracranial hemorrhage, mass effect or CT evidence of large vascular territ ory acute infarct. Results verbally communicated by phone by myself to Dr. Paniagua at 7:30 p.m. One or more dose reduction techniques were used (e.g., Automated exposure contr ol, adjustment of the mA and/or kV according to patient size, use of iterative reconstruction technique). Reading Location: [id number]
[2024-09-26 19:04] LABS: Absolute Lymphocyte Count 2.18 X10^3/uL (0.83-4.51); Absolute Neutrophil Count 7.7 X10^3/uL (2.0-7.7); Basophil# 0.03 X10^3/uL; Basophil% 0.3 % (0-1); Eosinophil# 0.05 X10^3/uL; Eosinophils% 0.5 % (0-5); Hematocrit 49.6 % (40-54); Hemoglobin 16.9 g/dL (13.0-16.5); Lymphocyte # 2.18 X10^3/ul (0.83-4.51); Lymphocyte % 19.7 % (19-41); Mean Corp Hgb Conc 34.1 g/dL (32-36); Mean Corpuscular Hgb 29.8 pg (27.0-32.0); Mean Corpuscular Volume 87.5 fL (80-94); Mean Platelet Vol. 9.7 fl (6.2-12.0); Monocyte% 9.1 % (0-10); NRBC Flagged by Analyzer 0 % (0-5); Neutrophil # 7.74 X10^3/uL (2.7-7.7); Platelet Count 282 K/mm3 (150-450); RBC Distribution Width CV 12.6 % (11.6-14.6); RBC Distribution Width SD 40.5 fl (35.1-43.9); Red Blood Count 5.67 M/mm3 (4.6-6.2)
--- NOTE | 2024-09-26 19:04 | CT_ITS ---
PROCEDURE: STROKE CTA HEAD AND NECK W/CON REASON FOR EXAM: Neuro deficit, acute, stroke suspected TECHNIQUE: CTA imaging of the head and neck from the aortic arch to the skull vertex with intravenous contrast. 3D reconstructions. with coronal and sagittal reformatted images and MIP images 3D reconstructions. IV CONTRAST: 92 cc Isovue-300 COMPARISON: None. FINDINGS: Aortic Arch: Normal size and branching pattern. No significant atherosclerotic plaque. Brachiocephalic and Subclavians: Unremarkable RIGHT Carotid: Mild calcific plaque formation without flow significant stenosis Right CCA: Unremarkable. Right ICA: Unremarkable. Right ECA: Unremarkable. LEFT Carotid: Left greater than right mild calcific plaque formation with some mild soft plaque without flow significant stenosis Left CCA: Unremarkable. Left ICA: Unremarkable. Left ECA: Unremarkable. Vertebrals: Codominant. Arise from the subclavians. Both vertebrals form the basilar. RIGHT Vertebral: Unremarkable. LEFT Vertebral: Unremarkable. No intracranial aneurysms or large vascular malformations are identified. Anterior cerebral arteries: Unremarkable. Middle cerebral arteries: Unremarkable. Basilar artery: Unremarkable. Posterior cerebral arteries: Unremarkable. Other major branches of the posterior circulation: Unremarkable. Major venous structures: Unremarkable. Other findings: No lymphadenopathy. Lung apices are clear. Bones are unremarkable. CT/STROKE CTA Head AND Neck W/Con IMPRESSION: No vessel cut off/occlusion, flow significant stenosis or aneurysm. Results verbally communicated by phone by myself to Dr. Paniagua at 7:30 p.m.. One or more dose reduction techniques were used (e.g., Automated exposure contr ol, adjustment of the mA and/or kV according to patient size, use of iterative reconstruction technique). Reading Location: [id number]
--- NOTE | 2024-09-26 19:10 | RAD_ITS ---
PROCEDURE: CHEST 1 VIEW REASON FOR EXAM: Neuro deficit, acute, stroke suspected TECHNIQUE: Frontal view of the chest. COMPARISON: 03/07/2021 FINDINGS: The heart size is normal. The lungs are clear. Atherosclerotic calcification noted at the aortic arch RAD/Chest 1 View IMPRESSION: No evidence of acute disease. Reading Location: [id number]
[2024-09-26 19:15] LABS: Bedside Glucose 202 mg/dL (74-106)
--- NOTE | 2024-09-26 19:16 | EX.ED.DYSGE1 ---
HPI History of Present Illness Chief Complaint: Dizziness Narrative Narrative: Patient is a 59-year-old male past medical history anxiety, hypertension, diabetes, hypercholesteremia who presented to the emergency department with a chief complaint of not feeling well lightheadedness and concern for dehydration. Patient states that earlier in the week the whole house was ill with vomiting diarrhea and GI symptoms. He states that he is more lightheaded in nature triage note states that he is dizzy he states that things are not spinning for him. He states that he feels like he is getting very lightheaded and might pass out. According to significant other at bedside she did note that he did pass out the other day but did not hit his head. She states that her children noted that he was normal all day and then around 6:00 PM this evening she left work and got home at 6:15 PM. She noted that he was not following commands appropriately and her son had to help him walk to the car. The patient himself requested to be brought to the emergency department. [facility] Medical History Hypertension Syncope Anxiety History of open sigmoidectomy Hypercholesteremia Diabetes Home Medications ?Medication ?Instructions ?Recorded ?Last Taken ?Type metformin 500 mg tablet,extended 1,000 mg PO DAILY 09/07/17 Unknown History release 24 hr pravastatin 20 mg tablet 20 mg PO DAILY 09/07/17 Unknown History ondansetron 4 mg disintegrating 4 mg PO Q8H PRN PRN Nausea #10 tabs 01/14/21 Unknown Rx tablet aspirin 81 mg chewable tablet 1 tab PO DAILY 02/05/21 Unknown History fluoxetine 10 mg capsule (Prozac) 20 mg PO DAILY 02/05/21 Unknown History pantoprazole 20 mg tablet,delayed 20 mg PO DAILY 02/05/21 Unknown History release gabapentin 300 mg capsule 300 mg PO QHS 09/26/24 Unknown History hydrochlorothiazide 12.5 mg capsule 12.5 mg PO DAILY 09/26/24 Unknown History lisinopril 20 mg tablet 20 mg PO DAILY 09/26/24 Unknown History pantoprazole 40 mg tablet,delayed 40 mg PO BID 09/26/24 Unknown History release semaglutide 0.25 mg or 0.5 mg (2 0.25 mg subcut QWEEK 09/26/24 Unknown History mg/3 mL) subcutaneous pen injector (Ozempic) trazodone 50 mg tablet mg 09/26/24 Unknown History Allergy/AdvReac Type Severity Reaction Status Date / Time No Known Allergies Allergy Verified 09/26/24 18:42 Surgical History H/O hernia repair Social History Smoking Status: Former smoker ROS ROS ED ROS Narrative Constitutional: Complains of headache denies any lightness, fevers or chills currently Eyes: Denies change in vision double vision blurry vision Cardiovascular: Denies chest pain or palpitations Respiratory: Denies coughing wheezing shortness of breath Abdomen: Denies abdominal pain nausea vomit diarrhea : Denies any urinary symptoms Neurological: Complains of difficulty walking as noted above and following commands denies any numbness or tingling Musculoskeletal: Denies back pain Skin: Denies rashes or lesions EXAM Physical Exam Narrative Exam Narrative: General: Patient was lying in bed rest comfortably did not appear to be in acute distress Head: Atraumatic, normocephalic Eyes: PERRL bilaterally, EOMI bilaterally, no conjunctival injection noted Neck: Soft, supple, trachea midline Cardiovascular: Patient tachycardic with regular rhythm no murmurs gallops rubs noted Respiratory: Clear to auscultation bilaterally Abdomen: Soft, nondistended, nontender to palpation, bowel sounds present x 4 Extremities: +5/5 strength noted in the bilateral upper and lower extremities, radial pulses +2/4 in the bilateral extremities, no pedal edema on exam Neurological: Patient did appear to be off slightly when he was attempting to follow my commands. NIH of 0 GCS 15. Patient completed finger-nose test bilaterally for any difficulty Skin: Warm, dry, intact no rashes lesions noted Const Vital Signs: 09/26/24 18:39 09/26/24 19:03 09/26/24 19:08 Temperature 98.1 F Temperature Source Temporal Pulse Rate 107 H 91 100 Respiratory Rate 16 12 18 Blood Pressure 99/76 184/104 H 181/104 H Blood Pressure Mean 83 130 129 Pulse Ox 100 98 98 Oxygen Delivery Method Room Air Room Air Room Air 09/26/24 19:11 09/26/24 19:21 09/26/24 19:33 Temperature Temperature Source Pulse Rate 90 91 Respiratory Rate 18 16 Blood Pressure 188/102 H 187/108 H Blood Pressure Mean 130 134 Pulse Ox 95 98 Oxygen Delivery Method Room Air Room Air Room Air 09/26/24 19:40 09/26/24 20:03 09/26/24 20:44 Temperature Temperature Source Pulse Rate 155 H 91 92 Respiratory Rate 14 16 Blood Pressure 165/117 H 181/104 H Blood Pressure Mean 133 129 Pulse Ox 98 99 Oxygen Delivery Method Room Air Room Air 09/26/24 21:13 09/26/24 21:14 Temperature 98.4 F 98.4 F Temperature Source Oral Pulse Rate 92 92 Respiratory Rate 18 18 Blood Pressure 192/103 H 192/103 H Blood Pressure Mean 132 132 Pulse Ox 96 96 Oxygen Delivery Method Room Air MDM MDM MDM Narrative Medical decision making narrative: Patient is a 59-year-old male who presented to the emergency department with a chief complaint of not acting his normal self with difficulty walking not following commands appropriately. On the differential diagnose includes but not limited to intracranial hemorrhage, large vessel occlusion, electrolyte abnormality, DKA. Once workup is obtained reviewed he will be reevaluated. Patient CBC reviewed and showed no evidence leukocytosis white blood count was noted be normal at 11, hemoglobin 16.9, plate count was noted be 282. Patient INR 1.1, PT of 14, sodium normal 133, potassium normal 3.7, creatinine normal at 0.79. Patient AST and ALT are 26 and 31 respectively. Patient's troponin normal at 17 with delta troponin pending. Patient's TSH normal at 2.54, free T4 and T3 were 1.10 and 2.6. Respectively. Patient's urinalysis showed no evidence infection and drug screen was negative. Patient chest x-ray reviewed by myself and by radiology showed no acute cardiopulmonary processes. Patient CT head and brain without contrast showed no acute intracranial hemorrhage or mass effect. Patient's CTA head and neck with contrast reviewed showed no evidence of large vessel occlusion. While in the emergency department nursing notified me that the patient's heart rate went to the 160s 1 we have tried to obtain an EKG he came out of this rhythm. We have EKG up to the patient and waited to see if you did go back into this rhythm again which he did. We did obtain an EKG which showed sinus tachycardia with a rate of [address] depressions noted in the lateral leads this is likely secondary to rate dependent. I did discuss case with licensing specialist Dr. 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 Patient will be admitted to the hospital for telemetry monitoring and evaluation of his symptoms. Will discuss case with hospitalist. Discussed case with hospitalist Dr. Lowe who accept patient for admission. Patient notified is agreeable this plan all course concerns answered. Lab Data Labs: Laboratory Results - last 24 hr 09/26/24 09/26/24 18:57 19:56 WBC 11.0 RBC 5.67 Hgb 16.9 H Hct 49.6 MCV 87.5 MCH 29.8 MCHC 34.1 RDW Std Deviation 40.5 RDW Coeff of Celia 12.6 Plt Count 282 MPV 9.7 Immature Gran % (Auto) 0.400 Neut % (Auto) 70.0 Lymph % (Auto) 19.7 [place] % (Auto) 9.1 Eos % (Auto) 0.5 Baso % (Auto) 0.3 Absolute Neuts (auto) 7.7 Absolute Lymphs (auto) 2.18 Nucleated RBC % 0 PT 14.0 INR 1.1 APTT 29.2 Sodium 133 Potassium 3.7 Chloride Direct 96 Carbon Dioxide 23.6 Anion Gap 14 BUN 15 Creatinine 0.79 Estim Creat Clear Calc 95.00 Est GFR (MDRD) Non-Af 101 BUN/Creatinine Ratio 19.3 Glucose 181 H Calcium 8.8 Total Bilirubin 0.58 AST 26 ALT 31 Alkaline Phosphatase 74 Troponin T High Sens 17 Total Protein 6.8 Albumin 4.2 Globulin 2.6 Albumin/Globulin Ratio 1.6 Lipase 28 TSH 2.540 Free T4 1.10 Free T3 pg/dL 2.6 Urine Color Yellow Urine Clarity Clear Urine pH 8.0 Ur Specific [place] 1.010 Urine Protein 15 H Urine Glucose (UA) 100 H Urine Ketones Negative Urine Occult Blood Negative Urine Nitrite Negative Urine Bilirubin Negative Urine Urobilinogen Normal Ur Leukocyte Esterase Negative Urine RBC 0-5 SEEN Urine WBC 0 SEEN Ur Squamous Epith Cells 0-5 SEEN Urine Bacteria 0 SEEN Urine Mucus 0 SEEN Urine Opiates Screen NEGATIVE U Buprenorphine Qual NEGATIVE Ur Oxycodone Screen NEGATIVE Urine Methadone Screen NEGATIVE Urine Fentanyl Screen NEGATIVE Ur Barbiturates Screen NEGATIVE Ur Phencyclidine Scrn NEGATIVE Ur Amphetamines Screen NEGATIVE U Benzodiazepines Scrn NEGATIVE Urine Cocaine Screen NEGATIVE U Cannabinoids Screen NEGATIVE POC Glucose 202 H Radiography Diagnostic Testing: Clinical Impression(s) from Imaging Studies Brain CT 09/26/24 19:03 IMPRESSION: No intracranial hemorrhage, mass effect or CT evidence of large vascular territory acute infarct. Results verbally communicated by phone by myself to Dr. Paniagua at 7:30 p.m. 09/26/2024 One or more dose reduction techniques were used (e.g., Automated exposure control, adjustment of the mA and/or kV according to patient size, use of iterative reconstruction technique). Reading Location: [facility] Head/Neck CTA 09/26/24 19:04 IMPRESSION: No vessel cut off/occlusion, flow significant stenosis or aneurysm. Results verbally communicated by phone by myself to Dr. Paniagua at 7:30 p.m.. One or more dose reduction techniques were used (e.g., Automated exposure control, adjustment of the mA and/or kV according to patient size, use of iterative reconstruction technique). Reading Location: [facility] Chest X-Ray 09/26/24 19:10 IMPRESSION: No evidence of acute disease. Reading Location: [facility] Discharge Plan Triage Chief Complaint: Dizziness ED Provider: Gaudencio Paniagua Dx/Rx/DC Orders Clinical Impression: Cardiac arrhythmia, Syncope, Light-headedness Prescriptions: No Action pravastatin 20 MG tablet 20 mg PO DAILY Patient Comments: take 1 tablet by mouth once daily at bedtime metformin 500 MG tablet 1,000 mg PO DAILY Patient Comments: take 2 tablets by mouth once daily with BREAKFAST ondansetron [ondansetron] 4 MG tablet 4 mg PO Q8H PRN PRN (Reason: Nausea) Qty: 10 0RF pantoprazole 20 mg tablet,delayed release (DR/EC) 20 mg PO DAILY fluoxetine [Prozac] 10 mg Capsule 20 mg PO DAILY aspirin 81 mg tablet,chewable 1 tab PO DAILY lisinopril 20 mg tablet 20 mg PO DAILY pantoprazole 40 mg tablet,delayed release (DR/EC) 40 mg PO BID gabapentin 300 mg capsule 300 mg PO QHS trazodone 50 mg tablet hydrochlorothiazide 12.5 mg capsule 12.5 mg PO DAILY Ozempic 0.25 mg or 0.5 mg (2 mg/3 mL) pen injector 0.25 mg subcut QWEEK Primary Care Provider: Enrique Valenzuela Referrals: Enrique Valenzuela MD [Primary Care Provider] - Print Language: [place] Disposition Disposition: Acute Care Hospital [facility]
[2024-09-26 19:23] LABS: International Normalized Ratio 1.1
[2024-09-26 19:24] LABS: Partial Thromboplast Time 29.2 Seconds (24.1-36.2)
[2024-09-26] MEDS: 0.9% Normal Saline (1000mL) 1,000 ML 999 ML IV (19:29)
[2024-09-26 19:46] LABS: ALB/GLOB Ratio 1.6 RATIO (0.9-2.4); AST(SGOT) 26 U/L (<=37); Alanine Aminotransfer ALT/SGPT 31 U/L (<=46); Albumin, Serum 4.2 g/dL (3.4-4.8); Alkaline Phosphatase 74 U/L (40-129); Anion Gap 14 (5-15); BUN 15 mg/dL (4-19); BUN/Creat Ratio 19.3 RATIO (10-20); Calcium 8.8 mg/dL (7.6-11.0); Carbon Dioxide 23.6 mmol/L (22.0-29.0); Chloride 96 mmol/L (96-108); Creatinine, Serum 0.79 mg/dL (0.70-1.20); EST Glomerular Filtration Rate 101 (>60); Globulin 2.6 g/dL (2.2-4.2); Glucose 181 mg/dL (70-99); Lipase 28 U/L (13-75); Potassium 3.7 mmol/L (3.3-5.1); Protein, Total 6.8 g/dL (5.9-8.4); Sodium Level 133 mmol/L (133-145); Total Bilirubin 0.58 mg/dL (0.00-1.30); Troponin T High Sensitivity 17 ng/L (<=22)
[2024-09-26 20:07] LABS: Bacteria 0 SEEN /hpf (None Seen); Mucous, Urine 0 SEEN /hpf (<or=2+); White Blood Cells 0 SEEN /hpf (0-5)
[2024-09-26 20:11] LABS: Color, Urine Yellow (Yellow); Glucose, Dipstick 100 mg/dl (Normal); Ketone-Dipstick Negative (Negative); Leukocyte Esterase-Dipstick Negative /ul (Negative); Nitrite-Dipstick Negative (Negative); Occult Blood-Urine Negative /ul (Negative); Protein-Dipstick 15 mg/dl (Negative); Urine Bilirubin Dipstick Negative (Negative); Urine Clarity Clear (Clear); Urine Urobilinogen Normal (Normal)
[2024-09-26 20:20] LABS: Red Blood Cells-Urine 0-5 SEEN /hpf (0-5)
[2024-09-26 20:21] LABS: Squamous Epithelial Cells - UA 0-5 SEEN /hpf (0-5)
[2024-09-26 20:28] LABS: Amphetamine Urine NEGATIVE (<1000 ng/mL); Barbiturate Urine NEGATIVE (< 200 ng/mL); Benzodiazepine Urine NEGATIVE (< 200 ng/mL); Buprenorphine Urine NEGATIVE (< 200 ng/mL); Cocaine Urine NEGATIVE (< 300 ng/mL); Fentanyl, Urine NEGATIVE; Methadone Urine NEGATIVE (< 300 ng/mL); Opiates Urine NEGATIVE (< 300 ng/mL); Oxycodone, Urine NEGATIVE (< 100 ng/mL); PCP Urine NEGATIVE (< 25 ng/mL); THC Urine NEGATIVE (< 50 ng/mL)
[2024-09-26 20:49] LABS: Free T3 2.6 pg/mL (2.18-3.98)
--- NOTE | 2024-09-26 21:07 | CM.ED ---
Social Work SW responded to Stroke Alert. Patient was being taken from room to imaging, was in room. stated that the whole house had been sick over the last week and her continued not feeling well. stated patient called her at work and told her he felt he needed to go to the hospital. When she got home, she stated he some of his sentences were not making sense. states that she works in a nursing facility and she understood the need to get him to the hospital quickly. Emotional support provided. No further needs identified at this time. Cintia Welch, [employer], RN BABY
--- NOTE | 2024-09-26 21:15 | PCM.HP.STD ---
[facility] - General General Date of Admission: 09/26/24 Date of Service: 09/26/24 Chief Complaint: Dizziness and Confusion. HPI Narrative OLIVIER POWELL, is a 59 M with a past medical history of essential hypertension; on lisinopril and hydrochlorothiazide, history of orthostatic hypotension; with history of suspected POTS causing syncope with patient not taking midodrine because his blood pressure has been persistently elevated, hyperlipidemia; on pravastatin, overweight; with BMI of 27.4 this admission, former tobacco abuse, DM-2; of unknown control on metformin and semaglutide, diabetic neuropathy; on gabapentin, depression with anxiety; on fluoxetine, history of urinary retention, history of open sigmoidectomy, history of hernia; s/p repair, GERD; on pantoprazole twice daily, OA and recent viral GI illness causing nausea and vomiting with bilious emesis and nonbloody diarrhea earlier this week who presents to [facility] ER complaining of dizziness and confusion. Mr. Powell reports his symptoms began when multiple members of his family developed a viral GI illness with patient also developing nausea, vomiting and diarrhea as noted above. The symptoms have since resolved but then earlier today his checked on him at around 6 PM this evening and found that he was not following commands and was confused and dizzy with patient feeling lightheaded and stating he felt like he might pass out. The ER physician was informed by the that the patient did pass out a few days ago but did not hit his head or have any other significant injury. He also admits to headache and difficulty walking with lightheadedness and trouble with following commands. He denies associated fever, chills, changes in vision, chest pain, shortness of breath, cough, abdominal pain, dysuria, back pain or any residual issues related to nausea, vomiting or diarrhea. In the ER he was initially called as a Stroke Alert with unremarkable Head CT and unrevealing neurologic evaluation by [facility] teleneurology. He was then noted to have a sudden burst of tachycardia into the ~160 bpm range that lasted approximately 10 seconds and was not captured on EKG but with voice instructor on-call suspecting Reentrant Tachycardia with beta-johnny therapy recommended in addition to Uncontrolled Hypertension of 192/103 mmHg noted shortly after admission. He was then admitted to the PCU under observation status for a stay of is expected to be less than 2 midnights. [facility] Medical History Hypertension Syncope Anxiety History of open sigmoidectomy Hypercholesteremia Diabetes Home Medications ?Medication ?Instructions ?Recorded ?Last Taken ?Type metformin 500 mg tablet,extended 1,000 mg PO DAILY 09/07/17 Unknown History release 24 hr pravastatin 20 mg tablet 20 mg PO DAILY 09/07/17 Unknown History ondansetron 4 mg disintegrating 4 mg PO Q8H PRN PRN Nausea #10 tabs 01/14/21 Unknown Rx tablet aspirin 81 mg chewable tablet 1 tab PO DAILY 02/05/21 Unknown History fluoxetine 10 mg capsule (Prozac) 20 mg PO DAILY 02/05/21 Unknown History gabapentin 300 mg capsule 300 mg PO QHS 09/26/24 Unknown History hydrochlorothiazide 12.5 mg capsule 12.5 mg PO DAILY 09/26/24 Unknown History lisinopril 20 mg tablet 20 mg PO DAILY 09/26/24 Unknown History pantoprazole 40 mg tablet,delayed 40 mg PO BID 09/26/24 Unknown History release semaglutide 0.25 mg or 0.5 mg (2 0.25 mg subcut QWEEK 09/26/24 Unknown History mg/3 mL) subcutaneous pen injector (FTL SOLAR) trazodone 50 mg tablet 50 mg PO DAILY Sleep 09/26/24 Unknown History Allergy/AdvReac Type Severity Reaction Status Date / Time No Known Allergies Allergy Verified 09/26/24 18:42 Surgical History H/O hernia repair Social History Smoking Status: Former smoker ROS ROS Narrative Review of Systems: Constitutional: Patient denies fever or chills. Eyes: Patient denies changes in vision or discharge from eyes. ENT: Patient denies runny nose, sore throat or ear pain. Resp: Patient denies shortness of breath or cough. CV: Patient admits to near syncope with lightheadedness but he denies chest pain, palpitations, heart racing or lower extremity edema. GI: Patient denies abdominal pain, nausea, vomiting, diarrhea or constipation. : Patient denies dysuria or hematuria. MSK: Patient denies arthralgias or myalgias. Skin: Patient denies rash. Psych: Patient denies symptoms of uncontrolled depression or anxiety. Neuro: Patient admits to previous confusion and headache earlier today which have both since resolved but he denies paresthesias or focal neurologic deficits. Allergy: Patient denies lip swelling, tongue swelling or urticaria. Hematology: Patient denies easy bleeding or easy bruisability. Endocrinology: Patient denies polyuria, polydipsia or polyphagia 14 point ROS otherwise negative except for positives noted above in HPI. Vital Signs Vital Signs Vital Signs: 09/26/24 18:39 09/26/24 19:03 09/26/24 19:08 Temperature 98.1 F Temperature Source Temporal Pulse Rate 107 H 91 100 Respiratory Rate 16 12 18 Blood Pressure 99/76 184/104 H 181/104 H Blood Pressure Mean 83 130 129 Pulse Ox 100 98 98 Oxygen Delivery Method Room Air Room Air Room Air 09/26/24 19:11 09/26/24 19:21 09/26/24 19:33 Temperature Temperature Source Pulse Rate 90 91 Respiratory Rate 18 16 Blood Pressure 188/102 H 187/108 H Blood Pressure Mean 130 134 Pulse Ox 95 98 Oxygen Delivery Method Room Air Room Air Room Air 09/26/24 19:40 09/26/24 20:03 09/26/24 20:44 Temperature Temperature Source Pulse Rate 155 H 91 92 Respiratory Rate 14 16 Blood Pressure 165/117 H 181/104 H Blood Pressure Mean 133 129 Pulse Ox 98 99 Oxygen Delivery Method Room Air Room Air 09/26/24 21:13 09/26/24 21:14 Temperature 98.4 F 98.4 F Temperature Source Oral Pulse Rate 92 92 Respiratory Rate 18 18 Blood Pressure 192/103 H 192/103 H Blood Pressure Mean 132 132 Pulse Ox 96 96 Oxygen Delivery Method Room Air Weight Weight: 180 lb Body Mass Index (BMI) 27.3 Physical Exam Const alert, oriented x3, no apparent distress, average body habitus and healthy appearing General Appearance: cooperative HEENT normocephalic, head/scalp atraumatic, hearing grossly normal bilaterally and moist oral mucous membranes Eyes PERRL, EOMs intact bilaterally and conjunctivae normal Neck no lymphadenopathy, supple and no JVD Resp normal respiratory effort, no retractions, no use of accessory muscles and clear to auscultation bilaterally Cardio regular rate and regular rhythm GI normal to inspection, nondistended, normoactive bowel sounds, soft to palpation, non-tender and non-distended Extremity normal to inspection, full ROM and no clubbing, cyanosis or edema Skin Skin Narrative: Patient is no evidence of rash. Neuro oriented x3, CN's II-XII intact bilaterally, moves all extremities and no focal motor deficits Sensorium / Orientation: awake, alert, oriented to person, oriented to place and oriented to time Speech: speech normal Psych affect normal Results Medical Records Data Attestation: I reviewed the patient's medical records Lab / Micro Data Attestation: I reviewed the patient's lab results. 09/27/24 05:02 09/27/24 05:02 Labs: Laboratory Results - last 24 hr 09/26/24 18:57: WBC 11.0, RBC 5.67, Hgb 16.9 H, Hct 49.6, MCV 87.5, MCH 29.8, MCHC 34.1, RDW Std Deviation 40.5, RDW Coeff of Celia 12.6, Plt Count 282, MPV 9.7, Immature Gran % (Auto) 0.400, Neut % (Auto) 70.0, Lymph % (Auto) 19.7, Dyer % (Auto) 9.1, Eos % (Auto) 0.5, Baso % (Auto) 0.3, Absolute Neuts (auto) 7.7, Absolute Lymphs (auto) 2.18, Nucleated RBC % 0, PT 14.0, INR 1.1, APTT 29.2, Sodium 133, Potassium 3.7, Chloride Direct 96, Carbon Dioxide 23.6, Anion Gap 14, BUN 15, Creatinine 0.79, Estim Creat Clear Calc 95.00, Est GFR (MDRD) Non-Af 101, BUN/Creatinine Ratio 19.3, Glucose 181 H, Calcium 8.8, Total Bilirubin 0.58, AST 26, ALT 31, Alkaline Phosphatase 74, Troponin T High Sens 17, Total Protein 6.8, Albumin 4.2, Globulin 2.6, Albumin/Globulin Ratio 1.6, Lipase 28, TSH 2.540, Free T4 1.10, Free T3 pg/dL 2.6, POC Glucose 202 H 09/26/24 19:56: Urine Color Yellow, Urine Clarity Clear, Urine pH 8.0, Ur Specific [place] 1.010, Urine Protein 15 H, Urine Glucose (UA) 100 H, Urine Ketones Negative, Urine Occult Blood Negative, Urine Nitrite Negative, Urine Bilirubin Negative, Urine Urobilinogen Normal, Ur Leukocyte Esterase Negative, Urine RBC 0-5 SEEN, Urine WBC 0 SEEN, Ur Squamous Epith Cells 0-5 SEEN, Urine Bacteria 0 SEEN, Urine Mucus 0 SEEN, Urine Opiates Screen NEGATIVE, U Buprenorphine Qual NEGATIVE, Ur Oxycodone Screen NEGATIVE, Urine Methadone Screen NEGATIVE, Urine Fentanyl Screen NEGATIVE, Ur Barbiturates Screen NEGATIVE, Ur Phencyclidine Scrn NEGATIVE, Ur Amphetamines Screen NEGATIVE, U Benzodiazepines Scrn NEGATIVE, Urine Cocaine Screen NEGATIVE, U Cannabinoids Screen NEGATIVE Imaging Radiology Impression Brain CT 09/26/24 19:03 IMPRESSION: No intracranial hemorrhage, mass effect or CT evidence of large vascular territory acute infarct. Results verbally communicated by phone by myself to Dr. Paniagua at 7:30 p.m. 09/26/2024 One or more dose reduction techniques were used (e.g., Automated exposure control, adjustment of the mA and/or kV according to patient size, use of iterative reconstruction technique). Reading Location: [facility] Head/Neck CTA 09/26/24 19:04 IMPRESSION: No vessel cut off/occlusion, flow significant stenosis or aneurysm. Results verbally communicated by phone by myself to Dr. Paniagua at 7:30 p.m.. One or more dose reduction techniques were used (e.g., Automated exposure control, adjustment of the mA and/or kV according to patient size, use of iterative reconstruction technique). Reading Location: [facility] Chest X-Ray 09/26/24 19:10 IMPRESSION: No evidence of acute disease. Reading Location: [facility] Assessment & Plan Assessment/Plan (1) Re-entrant atrial tachycardia: (2) Uncontrolled hypertension: (3) Near syncope: (4) Intermittent lightheadedness: (5) Confusion: (6) Orthostatic hypotension: PLAN: Plan 1. Sudden burst of tachycardia into the ~160 bpm range that lasted approximately 10 seconds and was not captured on EKG but with voice instructor on-call suspecting Reentrant Tachycardia with beta-johnny therapy recommended - Admit to PCU under observation status. Start metoprolol 25 mg p.o. twice daily and titrate as needed. Check echocardiogram to evaluate LVEF. Serialize troponin. Normal TSH of 2.54 noted on admission. Finally, we will consult [facility] to see this patient on rounds in the a.m. for further recommendations with help appreciated in advance. 2. Uncontrolled Hypertension of 192/103 mmHg noted shortly after admission complicating #1 - Resume lisinopril and hydrochlorothiazide plus metoprolol added for #1. Give hydralazine IV as needed for systolic blood pressure greater than 160 mmHg. 3. Lightheadedness, Dizziness and Confusion with Near Syncope today and Syncopal event a few days ago likely due to #1 & #2 in the setting of previously known Orthostatic Hypotension; currently not taking his previously prescribed midodrine because his blood pressure has been persistently elevated with prior evaluation for previously suspected POTS - TSH normal with negative UDS and UA. Check B12 and Folate levels. Give NS IV fluid and treat supportively. Check carotid Doppler to evaluate for stenosis. Check MRI of the brain without contrast to rule out CVA or inflammation that would explain his symptoms. Minimize MOLD OPERATOR-active medications to allow sensorium to clear. PT/OT and case management consult and treat on rounds in a.m. for further recommendations with help appreciated in advance. 4. Recent viral GI illness causing nausea and vomiting with bilious emesis and nonbloody diarrhea earlier this week adding to the burden of disease outlined from #1 - #3 - Resolved. 5. DM-2; of unknown control on metformin and semaglutide plus diabetic neuropathy; on gabapentin adding to the medical complexity of #1 - #4 - ADA diet. FSBS q. AC/HS plus lowest-intensity SSI. Check HgbA1c to objectively assess quality of diabetic control. 6. Hyperlipidemia; on pravastatin - Resume statin and check Lipid Profile. 7. Overweight; with BMI of 27.4 this admission - Weight loss will be recommended. 8. Former tobacco abuse - Noted. 9. Depression with anxiety; on fluoxetine - Maintain fluoxetine as before. 10. History of urinary retention - Stable with no complaints related to urinary retention at this time. 11. History of open sigmoidectomy - Noted. 12. History of hernia; s/p repair - Noted. 13. GERD; on pantoprazole twice daily - Continue PPI. 14. OA - Give acetaminophen as needed pain or fever. 15. DVT prophylaxis - Lovenox 40 mg sq daily plus SCD's. Total time: Approximately (but not less than) 70 minutes. Charges/Coding Visit Charges OBSV E&M: 33821 Observ/hosp same date L2
[2024-09-26 21:49] LABS: TROPONIN VARIANCE 2 HR 0; Troponin T High Sens 2 HR 17 ng/L (<=22)
--- NOTE | 2024-09-26 22:38 | ECHOD_ITS ---
Reason For Study Reason For Study: Syncope Procedure This was a 2D Doppler, Color Flow transthoracic echocardiogram. Exam performed portable in patient room. Left Ventricle Normal LV size. The estimated ejection fraction is 60 %. No evidence for diastolic dysfunction. No regional wall motion abnormalities noted. Right Ventricle Normal RV size. Normal systolic function. Atria The left and right atria are normal. No doppler evidence for ASD. Mitral Valve There is no mitral valve stenosis. Trivial mitral valve insufficiency. Tricuspid Valve There is no tricuspid stenosis. Trivial tricuspid valve insufficiency. Pulmonary artery systolic pressure is 30 mmHg. Aortic Valve Aortic sclerosis, no stenosis. There is no aortic stenosis. Trivial aortic valve insufficiency. Pulmonic Valve There is no pulmonic valvular stenosis. Trivial pulmonic valve insufficiency. Great Vessels Normal sized aortic root. Pericardium/Pleural No pericardial effusion. MMode/2D Measurements & Calculations LVIDd: 4.3 cm IVSd: 1.2 cm Ao root diam: 3.1 cm LVIDs: 3.3 cm LVPWd: 1.1 cm RVDd: 3.6 cm FS: 22.3 % LAV(MOD-bp): 54.0 ml LVAd ap4: 30.2 cm2 SV(MOD-sp4): 43.0 ml LAV(MOD-bp) Indexed: 28.7 ml/m2 LVLd ap4: 8.3 cm SI(MOD-sp4): 22.8 ml/m2 LAV(MOD-sp2): 53.2 ml EDV(MOD-sp4): 90.2 ml LAV(MOD-sp4): 50.0 ml EDV(sp4-el): 93.1 ml LVAs ap4: 19.9 cm2 LVLs ap4: 7.5 cm ESV(MOD-sp4): 47.2 ml ESV(sp4-el): 44.9 ml EF(MOD-sp4): 47.6 % EF(sp4-el): 51.8 % SV(sp4-el): 48.2 ml Ao sinus diam: 3.[address] Junction: 2.1 cm LA dimension(2D): 4.4 cm LA A4 area: 18.8 cm2 RA A4 area: 15.4 cm2 TAPSE: 1.4 cm Time Measurements MV dec time: 0.24 sec Doppler Measurements & Calculations MV E max yakov: 37.6 cm/sec Lat Peak E' Yakov: 6.0 cm/sec Med Peak E' Yakov: 4.8 cm/sec MV A max yakov: 67.9 cm/sec E/E' lat: 6.2 E/E' med: 7.8 MV E/A: 0.55 MV V2 max: 77.0 cm/sec MV P1/2t max yakov: 42.7 cm/sec Ao V2 max: 106.2 cm/sec MV max P.4 mmHg MV P1/2t: 83.0 msec Ao max P.5 mmHg MV V2 mean: 34.9 cm/sec MV dec slope: 150.8 cm/sec2 Ao V2 mean: 71.9 cm/sec MV mean P.59 mmHg Ao mean P.4 mmHg MV V2 VTI: 15.9 cm MVA(P1/2t): 2.7 cm2 Ao V2 VTI: 21.1 cm LV V1 max: 66.7 cm/sec PA V2 max: 73.5 cm/sec TR max yakov: 249.9 cm/sec LV V1 max P.8 mmHg TR max P.0 mmHg ECHO/Echo Complete Interpretation Summary The estimated ejection fraction is 60 %. No evidence for diastolic dysfunction. Trivial mitral valve insufficiency. Trivial aortic valve insufficiency. Ordering Physician: Delmer Dean Referring Physician: Delmer Dean Performed By: Colin Davenport RCS
[2024-09-26] MEDS: 0.9% Normal Saline (1000mL) 1,000 ML 30 ML IV (23:13)
[2024-09-26] MEDS: Metoprolol Tartrate 25 MG Tablet PO (23:15)
[2024-09-26 23:28] LABS: Hemoglobin A1c 6.9 % (<=5.6)
[2024-09-26] MEDS: traZODone 50 MG Tablet PO (23:36)
[2024-09-26] MEDS: Insulin Lispro 100 UNIT/ML INSULN.PEN SC (23:36)
[2024-09-26] MEDS: Gabapentin 300 MG Capsule PO (23:36)
[2024-09-26] MEDS: 0.9% Saline Lock 10 ML Syringe IV (23:36)
[2024-09-26] MEDS: Pravastatin 20 MG Tablet PO (23:36)
[2024-09-26] MEDS: Pantoprazole Sodium 40 MG Tablet PO (23:36)
[2024-09-26 23:56] LABS: Magnesium 2.1 mg/dL (1.5-2.2); TROPONIN VARIANCE 4 HR 1; Troponin T High Sens 4 HR 16 ng/L (<=22); Vitamin B12 384 pg/mL (180-914)
[2024-09-26 23:58] LABS: Bedside Glucose 192 mg/dL (74-106)
[2024-09-27] VITALS (10 sets, daily range): BP systolic 145–190; BP diastolic 83–105; PULSE 71–80; RESP 14–18; TEMP 36.6–37.1; O2SAT 93–99; BMI 25.0
[2024-09-27 00:13] LABS: Cholesterol 140 mg/dL (<=200); High Density Lipoprotein 34 mg/dL; Low Density Lipoprotein Calc. 79 mg/dL; Triglycerides 140 mg/dL; Very Low Density Lipoprotein 28 mg/dL (5-40); cholesterol:hdl ratio screen 4.18
--- NOTE | 2024-09-27 01:02 | EKG12_ITS ---
Test Reason : TACHYCARDIA Blood Pressure : */* mmHG Vent. Rate : 156 BPM Atrial Rate : 156 BPM P-R Int : 80 ms QRS Dur : 70 ms QT Int : 314 ms P-R-T Axes : * 54 -43 degrees QTcB Int : 506 ms Critical Test Result: High HR Supraventricular tachycardia -possible AVNRT Nonspecific ST & T wave abnormality Abnormal ECG Confirmed by Igor Liang ([id number]), food editor JULIET PERAZA ([id number]) on 09/30/2024 10:38:52 AM Referred By: Delmer Dean Confirmed By: Igor Liang
[2024-09-27 05:30] LABS: Absolute Lymphocyte Count 2.11 X10^3/uL (0.83-4.51); Absolute Neutrophil Count 8.1 X10^3/uL (2.0-7.7); Basophil# 0.04 X10^3/uL; Basophil% 0.3 % (0-1); Eosinophil# 0.03 X10^3/uL; Eosinophils% 0.3 % (0-5); Hematocrit 46.5 % (40-54); Hemoglobin 15.9 g/dL (13.0-16.5); Lymphocyte # 2.11 X10^3/ul (0.83-4.51); Lymphocyte % 18.4 % (19-41); Mean Corp Hgb Conc 34.2 g/dL (32-36); Mean Corpuscular Hgb 29.9 pg (27.0-32.0); Mean Corpuscular Volume 87.6 fL (80-94); Mean Platelet Vol. 9.9 fl (6.2-12.0); Monocyte# 1.11 X10^3/uL; Monocyte% 9.7 % (0-10); NRBC Flagged by Analyzer 0 % (0-5); Neutrophil % 70.8 % (47-70); Platelet Count 288 K/mm3 (150-450); RBC Distribution Width CV 12.7 % (11.6-14.6); RBC Distribution Width SD 41.1 fl (35.1-43.9); Red Blood Count 5.31 M/mm3 (4.6-6.2); White Blood Count 11.5 K/mm3 (4.4-11.0)
[2024-09-27 05:56] LABS: ALB/GLOB Ratio 1.7 RATIO (0.9-2.4); AST(SGOT) 20 U/L (<=37); Alanine Aminotransfer ALT/SGPT 29 U/L (<=46); Alkaline Phosphatase 68 U/L (40-129); Anion Gap 11 (5-15); BUN 14 mg/dL (4-19); BUN/Creat Ratio 17.4 RATIO (10-20); Calcium 8.8 mg/dL (7.6-11.0); Carbon Dioxide 25.8 mmol/L (22.0-29.0); Chloride 98 mmol/L (96-108); Creatinine, Serum 0.79 mg/dL (0.70-1.20); EST Glomerular Filtration Rate 101 (>60); Globulin 2.4 g/dL (2.2-4.2); Glucose 183 mg/dL (70-99); Phosphorus 3.3 mg/dL (2.7-4.5); Potassium 3.9 mmol/L (3.3-5.1); Protein, Total 6.4 g/dL (5.9-8.4); Sodium Level 135 mmol/L (133-145); Total Bilirubin 0.69 mg/dL (0.00-1.30)
[2024-09-27] MEDS: Insulin Lispro 100 UNIT/ML INSULN.PEN SC ×2 (06:46→11:31)
[2024-09-27 07:06] LABS: Bedside Glucose 159 mg/dL (74-106)
--- NOTE | 2024-09-27 08:03 | CON.PCM.CA_ITS ---
Assessment & Plan Assessment/Plan (1) Uncontrolled hypertension: PLAN: Patient's blood pressure remains elevated. He is recovering from norovirus the whole family had it he was profoundly sick within the last 72 hours with vomiting. Patient has been on lisinopril in his home environment he has not been taking the hydrochlorothiazide. I would recommend we increase his metoprolol to 50 mg twice daily continue his lisinopril at 20 mg daily and reinstitute hydrochlorothiazide 12.5 mg daily and monitor his blood pressure. The confusion and syncope/near syncope evaluation or proceeding from a neurologic standpoint. It is possible that the patient's norovirus infection on top of his SVT may have caused these near syncopal spells. 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 It was transient and spontaneously broke. He has been having the same type of symptoms back several years ago when he was diagnosis possible POTS. I would recommend we increase his beta-johnny therapy this will also help control the blood pressure if he has breakthrough SVT would evaluate him with broadcast traffic coordinator for possible ablation therapy. Will check a 2D echocardiogram to rule out any structural heart disease. I discussed this plan with the patient and his today. PLAN: Plan 1. Will follow-up results of the 2D echo. 2. Will increase metoprolol to tartrate to 50 mg twice daily. 3. Will follow-up with you as directed. 4. After discharge the patient should be followed up in the [place] office within a month. If he has recurrent SVT we would work him in earlier. HPI Consult Data Date of Consult: 09/27/24 HPI Narrative Reason for Consultation: SVT HPI Narrative: OLIVIER PATRICK, is a 59 M who presents patient presented to emergency department complaining of dizziness and confusion this was after profound vomiting associated with norovirus which the entire family had. He was noted to be in sinus rhythm with essentially normal EKG and then went into a tachycardia in the 160 bpm range. The EKG shows a narrow complex supraventricular tachycardia at that of probably is AV kimo reentrant. This converted spontaneously. The patient was aware of palpitations at the time and said he previously had felt something similar to this when he was evaluated for POTS a few years ago. Those symptoms of syncope and palpitations spontaneously resolved over a 2-year timeframe. The patient had reports an extensive cardiac evaluation at that time which was negative. Had stroke alert was called and the evaluation done by [facility] telene[facility]rology was unremarkable for the CT but he is due to have an MRI done later today. The patient's blood pressures also been elevated it was 192/103 in the emergency department. He was instituted on beta-johnny therapy. He was supposed to be on hydrochlorothiazide and lisinopril in the home environment. He is also on diabetic meds for his diabetes. Currently the patient is resting comfortably in the bed he denies any confusion at this point in time he is alert and oriented. His is at the bedside. The patient is slightly confused about the exact timing of Monday versus Monday when he was so sick and vomiting. Otherwise he appears to be cognitively intact. Currently the patient denies any chest pain denies any previous coronary artery disease. He does have a history of hypertension orthostatic hypotension remotely which was diagnosed as POTS as well. He has hyperlipidemia on pravastatin he is a remote smoker he has diabetes as noted above. He also has a history of depression and anxiety history of urinary retention history of an open sigmoidectomy history of hernia repair gastroesophageal reflux disease osteoarthritis. [facility] Medical History Hypertension Syncope Anxiety History of open sigmoidectomy Hypercholesteremia Diabetes Home Medications ?Medication ?Instructions ?Recorded ?Last Taken ?Type metformin 500 mg tablet,extended 1,000 mg PO DAILY 03/17 Unknown History release 24 hr pravastatin 20 mg tablet 20 mg PO DAILY 09/07/17 Unkn own History ondansetron 4 mg disintegrating 4 mg PO Q8H PRN PRN Na usea #10 tabs 01/14/21 Unknown Rx tablet aspirin 81 mg chewable tablet 1 tab PO DAILY 02/05/21 Unknown History fluoxetine 10 mg capsule (Prozac) 20 mg PO DAILY 02/05 Unknown History gabapentin 300 mg capsule 300 mg PO QHS 09/26/24 Unkno wn History hydrochlorothiazide 12.5 mg capsule 12.5 mg PO DAILY 0 09/26/24 Unknown History lisinopril 20 mg tablet 20 mg PO DAILY 09/26/24 Unkn own History pantoprazole 40 mg tablet,delayed 40 mg PO BID 5 Unknown History release semaglutide 0.25 mg or 0.5 mg (2 0.25 mg subcut QWEEK 09/26/24 Unknown History mg/3 mL) subcutaneous pen injector (Ozempic) trazodone 50 mg tablet 50 mg PO DAILY Sleep 5 Unknown History Allergy/AdvReac Type Severity Reaction Status Date / Time No Known Allergies Allergy Verified 09/26/24 18:42 Surgical History H/O hernia repair Social History Smoking Status: Former smoker ROS Constitutional Constitutional: Reports as per HPI Eyes Eyes: Reports systems reviewed and no addt'l complaints, except as documented ENT HEENT: Reports systems reviewed and no addt'l complaints, except as documented Cardiovascular Cardiovascular: Reports as per HPI Respiratory/Chest Respiratory/Chest: Reports systems reviewed and no addt'l complaints, except as documented Gastrointestinal Gastrointestinal: Reports as per HPI Genitourinary Genitourinary: Reports as per HPI Musculoskeletal Musculoskeletal: Reports systems reviewed and no addt'l complaints, except as documented Integumentary Integumentary: Reports systems reviewed and no addt'l complaints, except as documented Neurologic Neurologic: Reports as per HPI Psychiatric Psychiatric: Reports systems reviewed and no addt'l complaints, except as documented Endocrine Endocrinology: Reports as per HPI Hematologic/Lymphatic Hematologic/Lymphatic: Reports systems reviewed and no addt'l complaints, except as documented Allergic/Immunologic Allergic/Immunologic: Reports systems reviewed and no addt'l complaints, except as documented Physical Exam Const alert and oriented x3 HEENT normocephalic Eyes PERRL Neck no JVD and no carotid bruits Chest inspection of chest normal Resp normal respiratory effort and clear to auscultation bilaterally Cardio Rate: regular rate Rhythm: regular rhythm Heart Sounds: S1 normal and S2 normal; Negative for click, gallop or murmur GI soft to palpation and no bruits Extremity no pedal edema Neuro Neuro Narrative: Alert and oriented x 3 Psych mental status grossly normal Risk Stratification Risk Stratification Applicable: No Charges/Coding Visit Charges Inpatient E&M: 71659 Init Hosp L2 Objective Data Vital Signs: Vital Signs Temp Pulse Resp BP Pulse Ox O2 Del Method 98.2 F 80 14 156/93 H 99 Room Air 09/27/24 03:15 09/27/24 03:15 09/27/24 03:15 09/27/24 03:15 09/27/24 03:15 09/27/24 03:22 Oxygen Delivery Method Room Air Weight: 164 lb 7.437 oz Body Mass Index (BMI) 25.0 Intake & Output: Intake and Output for Last 24 Hours 09/25/24 09/26/24 09/27/24 23:59 23:59 23:59 Intake Total 1220 / 1220 0 / 0 Output Total 0 / 0 Balance 1220 / 1220 0 / 0 Lab / Micro Data Attestation: I reviewed the patient's lab results. 09/27/24 05:02 09/27/24 05:02 Labs: Laboratory Results - last 24 hr 09/26/24 18:57: WBC 11.0, RBC 5.67, Hgb 16.9 H, Hct 49.6, MCV 87.5, MCH 29.8, MCHC 34.1, RDW Std Deviation 40.5, RDW Coeff of Celia 12.6, Plt Count 282, MPV 9.7, Immature Gran % (Auto) 0.400, Neut % (Auto) 70.0, Lymph % (Auto) 19.7, Barber % (Auto) 9.1, Eos % (Auto) 0.5, Baso % (Auto) 0.3, Absolute Neuts (auto) 7.7, Absolute Lymphs (auto) 2.18, Nucleated RBC % 0, PT 14.0, INR 1.1, APTT 29.2, Sodium 133, Potassium 3.7, Chloride Direct 96, Carbon Dioxide 23.6, Anion Gap 14, BUN 15, Creatinine 0.79, Estim Creat Clear Calc 95.00, Est GFR (MDRD) Non-Af 101, BUN/Creatinine Ratio 19.3, Glucose 181 H, Hemoglobin A1c 6.9, Calcium 8.8, Total Bilirubin 0.58, AST 26, ALT 31, Alkaline Phosphatase 74, Troponin T High Sens 17, Total Protein 6.8, Albumin 4.2, Globulin 2.6, Albumin/Globulin Ratio 1.6, Lipase 28, TSH 2.540, Free T4 1.10, Free T3 pg/dL 2.6, POC Glucose 202 H 09/26/24 19:56: Urine Color Yellow, Urine Clarity Clear, Urine pH 8.0, Ur Specific [place] 1.010, Urine Protein 15 H, Urine Glucose (UA) 100 H, Urine Ketones Negative, Urine Occult Blood Negative, Urine Nitrite Negative, Urine Bilirubin Negative, Urine Urobilinogen Normal, Ur Leukocyte Esterase Negative, Urine RBC 0-5 SEEN, Urine WBC 0 SEEN, Ur Squamous Epith Cells 0-5 SEEN, Urine Bacteria 0 SEEN, Urine Mucus 0 SEEN, Urine Opiates Screen NEGATIVE, U Buprenorphine Qual NEGATIVE, Ur Oxycodone Screen NEGATIVE, Urine Methadone Screen NEGATIVE, Urine Fentanyl Screen NEGATIVE, Ur Barbiturates Screen NEGATIVE, Ur Phencyclidine Scrn NEGATIVE, Ur Amphetamines Screen NEGATIVE, U Benzodiazepines Scrn NEGATIVE, Urine Cocaine Screen NEGATIVE, U Cannabinoids Screen NEGATIVE 09/26/24 21:08: Troponin T Hi Sens 2 Hr 17, Troponin T Hi Sens 2Hr Delta 0 09/26/24 22:40: Magnesium 2.1, Troponin T Hi Sens 4Hr 16, Troponin T Hi Sens 4Hr Delta 1, Triglycerides 140, Cholesterol 140, VLDL Cholesterol 28, HDL Cholesterol 34 L, Cholesterol/HDL Ratio 4.18, Vitamin B12 384 09/26/24 23:35: POC Glucose 192 H 09/27/24 05:02: WBC 11.5 H, RBC 5.31, Hgb 15.9, Hct 46.5, MCV 87.6, MCH 29.9, MCHC 34.2, RDW Std Deviation 41.1, RDW Coeff of Celia 12.7, Plt Count 288, MPV 9.9, Immature Gran % (Auto) 0.500, Neut % (Auto) 70.8 H, Lymph % (Auto) 18.4 L, Barber % (Auto) 9.7, Eos % (Auto) 0.3, Baso % (Auto) 0.3, Absolute Neuts (auto) 8.1 H, Absolute Lymphs (auto) 2.11, Nucleated RBC % 0, Sodium 135, Potassium 3.9, Chloride Direct 98, Carbon Dioxide 25.8, Anion Gap 11, BUN 14, Creatinine 0.79, Estim Creat Clear Calc 95.00, Est GFR (MDRD) Non-Af 101, BUN/Creatinine Ratio 17.4, Glucose 183 H, Calcium 8.8, Phosphorus 3.3, Total Bilirubin 0.69, AST 20, ALT 29, Alkaline Phosphatase 68, Total Protein 6.4, Albumin 4.0, Globulin 2.4, Albumin/Globulin Ratio 1.7 09/27/24 06:44: POC Glucose 159 H Rhythm Strip Rhythm Strip: Sinus Rhythm Rate: 80 Cardiology Labs/Tests 09/26/24 18:57: WBC 11.0, RBC 5.67, Hgb 16.9 H, Hct 49.6, MCV 87.5, MCH 29.8, MCHC 34.1, Plt Count 282, MPV 9.7, Immature Gran % (Auto) 0.400, Neut % (Auto) 70.0, Lymph % (Auto) 19.7, Barber % (Auto) 9.1, Eos % (Auto) 0.5, Baso % (Auto) 0.3, Absolute Neuts (auto) 7.7, Nucleated RBC % 0, PT 14.0, INR 1.1, APTT 29.2, Sodium 133, Potassium 3.7, Carbon Dioxide 23.6, Anion Gap 14, BUN 15, Creatinine 0.79, Est GFR (MDRD) Non-Af 101, BUN/Creatinine Ratio 19.3, Glucose 181 H, Hemoglobin A1c 6.9, Calcium 8.8, Total Bilirubin 0.58 09/26/24 19:56: Urine Color Yellow, Urine Clarity Clear, Urine pH 8.0, Ur Specific [place] 1.010, Urine Protein 15 H, Urine Glucose (UA) 100 H, Urine Ketones Negative, Urine Occult Blood Negative, Urine Nitrite Negative, Urine Bilirubin Negative, Urine Urobilinogen Normal, Ur Leukocyte Esterase Negative, Urine RBC 0-5 SEEN, Urine WBC 0 SEEN 09/26/24 22:40: Magnesium 2.1, Triglycerides 140, Cholesterol 140, VLDL Cholesterol 28, HDL Cholesterol 34 L, Cholesterol/HDL Ratio 4.18 09/27/24 05:02: WBC 11.5 H, RBC 5.31, Hgb 15.9, Hct 46.5, MCV 87.6, MCH 29.9, MCHC 34.2, Plt Count 288, MPV 9.9, Immature Gran % (Auto) 0.500, Neut % (Auto) 70.8 H, Lymph % (Auto) 18.4 L, Barber % (Auto) 9.7, Eos % (Auto) 0.3, Baso % (Auto) 0.3, Absolute Neuts (auto) 8.1 H, Nucleated RBC % 0, Sodium 135, Potassium 3.9, Carbon Dioxide 25.8, Anion Gap 11, BUN 14, Creatinine 0.79, Est GFR (MDRD) Non-Af 101, BUN/Creatinine Ratio 17.4, Glucose 183 H, Calcium 8.8, Phosphorus 3.3, Total Bilirubin 0.69 Rhythm: EKG: ECHO: Stress Test: Cardiac Cath: PCI: CT Surgery: Holter monitor: EPS: PPM: CXR: Chest CT Scan: Radiography Diagnostic Testing: Radiology Impression Brain CT 09/26/24 19:03 IMPRESSION: No intracranial hemorrhage, mass effect or CT evidence of large vascular territory acute infarct. Results verbally communicated by phone by myself to Dr. Paniagua at 7:30 p.m. 09/26/2024 One or more dose reduction techniques were used (e.g., Automated exposure control, adjustment of the mA and/or kV according to patient size, use of iterative reconstruction technique). Reading Location: [facility] Head/Neck CTA 09/26/24 19:04 IMPRESSION: No vessel cut off/occlusion, flow significant stenosis or aneurysm. Results verbally communicated by phone by myself to Dr. Paniagua at 7:30 p.m.. One or more dose reduction techniques were used (e.g., Automated exposure control, adjustment of the mA and/or kV according to patient size, use of iterative reconstruction technique). Reading Location: [facility] Chest X-Ray 09/26/24 19:10 IMPRESSION: No evidence of acute disease. Reading Location: [facility]
[2024-09-27] MEDS: Pantoprazole Sodium 40 MG Tablet PO ×2 (08:11→20:05)
[2024-09-27] MEDS: Aspirin 81 MG TAB.CHEW PO (08:11)
[2024-09-27] MEDS: Lisinopril 20 MG Tablet PO ×2 (08:11→20:08)
[2024-09-27] MEDS: hydroCHLOROthiazide 12.5mg 12.5 MG PO (08:11)
[2024-09-27] MEDS: FLUoxetine 20 MG Capsule PO (08:12)
[2024-09-27] MEDS: Metoprolol Tartrate 25 MG Tablet PO (08:12)
[2024-09-27] MEDS: Enoxaparin 40 MG/0.4 ML Syringe SC (08:12)
[2024-09-27] MEDS: Metoprolol Tartrate 50 MG Tablet PO ×2 (11:29→20:05)
[2024-09-27 11:57] LABS: Bedside Glucose 227 mg/dL (74-106)
[2024-09-27] MEDS: Ondansetron 4 MG/2 ML Vial IV (15:56)
[2024-09-27] MEDS: 0.9% Saline Lock 10 ML Syringe IV (15:57)
--- NOTE | 2024-09-27 16:29 | CASEMGMT ---
MICHAEL CM into pt room, pt states I at baseline, has family support and denies any DC needs. Denies questions at this time.
[2024-09-27 17:22] LABS: Bedside Glucose 145 mg/dL (74-106)
--- NOTE | 2024-09-27 18:31 | PCM.PN.HOSP ---
Reason for Visit Reason for Visit: Confusion/dizziness Subjective Subjective Patient states he feels much better. No issues overnight. No tingling, numbness, or weakness. Patient states he had little bit of nausea after he ate. States he ate too much. Objective Data Objective Data Vital Signs: Vital Signs Temp Pulse Resp BP Pulse Ox O2 Del Method 97.8 F 74 16 186/105 H 97 Room Air 09/27/24 17:00 09/27/24 17:00 09/27/24 17:00 09/27/24 17:00 09/27/24 17:00 09/27/24 17:00 Oxygen Delivery Method Room Air Weight: 74.6 kg Body Mass Index (BMI) 25.0 Intake & Output: Intake and Output for Last 24 Hours 09/25/24 09/26/24 09/27/24 23:59 23:59 23:59 Intake Total 1220 / 1220 1202.5 / 1202.5 Output Total 0 / 0 Balance 1220 / 1220 1202.5 / 1202.5 Lab / Micro Data 09/27/24 05:02 09/27/24 05:02 Labs: Laboratory Results - last 24 hr 09/26/24 18:57: WBC 11.0, RBC 5.67, Hgb 16.9 H, Hct 49.6, MCV 87.5, MCH 29.8, MCHC 34.1, RDW Std Deviation 40.5, RDW Coeff of Celia 12.6, Plt Count 282, MPV 9.7, Immature Gran % (Auto) 0.400, Neut % (Auto) 70.0, Lymph % (Auto) 19.7, Frio % (Auto) 9.1, Eos % (Auto) 0.5, Baso % (Auto) 0.3, Absolute Neuts (auto) 7.7, Absolute Lymphs (auto) 2.18, Nucleated RBC % 0, PT 14.0, INR 1.1, APTT 29.2, Sodium 133, Potassium 3.7, Chloride Direct 96, Carbon Dioxide 23.6, Anion Gap 14, BUN 15, Creatinine 0.79, Estim Creat Clear Calc 95.00, Est GFR (MDRD) Non-Af 101, BUN/Creatinine Ratio 19.3, Glucose 181 H, Hemoglobin A1c 6.9, Calcium 8.8, Total Bilirubin 0.58, AST 26, ALT 31, Alkaline Phosphatase 74, Troponin T High Sens 17, Total Protein 6.8, Albumin 4.2, Globulin 2.6, Albumin/Globulin Ratio 1.6, Lipase 28, TSH 2.540, Free T4 1.10, Free T3 pg/dL 2.6, POC Glucose 202 H 09/26/24 19:56: Urine Color Yellow, Urine Clarity Clear, Urine pH 8.0, Ur Specific [place] 1.010, Urine Protein 15 H, Urine Glucose (UA) 100 H, Urine Ketones Negative, Urine Occult Blood Negative, Urine Nitrite Negative, Urine Bilirubin Negative, Urine Urobilinogen Normal, Ur Leukocyte Esterase Negative, Urine RBC 0-5 SEEN, Urine WBC 0 SEEN, Ur Squamous Epith Cells 0-5 SEEN, Urine Bacteria 0 SEEN, Urine Mucus 0 SEEN, Urine Opiates Screen NEGATIVE, U Buprenorphine Qual NEGATIVE, Ur Oxycodone Screen NEGATIVE, Urine Methadone Screen NEGATIVE, Urine Fentanyl Screen NEGATIVE, Ur Barbiturates Screen NEGATIVE, Ur Phencyclidine Scrn NEGATIVE, Ur Amphetamines Screen NEGATIVE, U Benzodiazepines Scrn NEGATIVE, Urine Cocaine Screen NEGATIVE, U Cannabinoids Screen NEGATIVE 09/26/24 21:08: Troponin T Hi Sens 2 Hr 17, Troponin T Hi Sens 2Hr Delta 0 09/26/24 22:40: Magnesium 2.1, Troponin T Hi Sens 4Hr 16, Troponin T Hi Sens 4Hr Delta 1, Triglycerides 140, Cholesterol 140, VLDL Cholesterol 28, HDL Cholesterol 34 L, Cholesterol/HDL Ratio 4.18, Vitamin B12 384 09/26/24 23:35: POC Glucose 192 H 09/27/24 05:02: WBC 11.5 H, RBC 5.31, Hgb 15.9, Hct 46.5, MCV 87.6, MCH 29.9, MCHC 34.2, RDW Std Deviation 41.1, RDW Coeff of Celia 12.7, Plt Count 288, MPV 9.9, Immature Gran % (Auto) 0.500, Neut % (Auto) 70.8 H, Lymph % (Auto) 18.4 L, Frio % (Auto) 9.7, Eos % (Auto) 0.3, Baso % (Auto) 0.3, Absolute Neuts (auto) 8.1 H, Absolute Lymphs (auto) 2.11, Nucleated RBC % 0, Sodium 135, Potassium 3.9, Chloride Direct 98, Carbon Dioxide 25.8, Anion Gap 11, BUN 14, Creatinine 0.79, Estim Creat Clear Calc 95.00, Est GFR (MDRD) Non-Af 101, BUN/Creatinine Ratio 17.4, Glucose 183 H, Calcium 8.8, Phosphorus 3.3, Total Bilirubin 0.69, AST 20, ALT 29, Alkaline Phosphatase 68, Total Protein 6.4, Albumin 4.0, Globulin 2.4, Albumin/Globulin Ratio 1.7 09/27/24 06:44: POC Glucose 159 H 09/27/24 11:30: POC Glucose 227 H 09/27/24 17:00: POC Glucose 145 H Radiography Diagnostic Testing: Radiology Impression Brain CT 09/26/24 19:03 IMPRESSION: No intracranial hemorrhage, mass effect or CT evidence of large vascular territory acute infarct. Results verbally communicated by phone by myself to Dr. Paniagua at 7:30 p.m. 09/26/2024 One or more dose reduction techniques were used (e.g., Automated exposure control, adjustment of the mA and/or kV according to patient size, use of iterative reconstruction technique). Reading Location: [facility] Head/Neck CTA 09/26/24 19:04 IMPRESSION: No vessel cut off/occlusion, flow significant stenosis or aneurysm. Results verbally communicated by phone by myself to Dr. Paniagua at 7:30 p.m.. One or more dose reduction techniques were used (e.g., Automated exposure control, adjustment of the mA and/or kV according to patient size, use of iterative reconstruction technique). Reading Location: [facility] Chest X-Ray 09/26/24 19:10 IMPRESSION: No evidence of acute disease. Reading Location: [facility] Echocardiogram 09/26/24 22:38 Interpretation Summary The estimated ejection fraction is 60 %. No evidence for diastolic dysfunction. Trivial mitral valve insufficiency. Trivial aortic valve insufficiency. Ordering Physician: Delmer Dean Referring Physician: Delmer Dean Performed By: Colin Davenport RCS Brain MRI 09/27/24 22:38 IMPRESSION: 1. 7 mm focus of restricted diffusion in the superior left basal ganglia/coronal radiata. This is most likely a subacute lacunar infarct although more rarely active demyelinating plaque can produce this appearance. 2. 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 head yesterday. Reading Location: [facility] Rhythm Strip Rhythm Strip: Sinus Rhythm Rate: 80 Physical Exam Const alert, oriented x3, no apparent distress and well nourished Constitutional Narrative: Abnormal age, white male, sitting up in bed, appears comfortable, nontoxic, at bedside HEENT head/scalp atraumatic and moist oral mucous membranes HEENT Narrative: Mallampati 3, no thrush Head and Scalp: normocephalic Resp normal respiratory effort, no retractions, no use of accessory muscles and clear to auscultation bilaterally Auscultation: Negative for rales, rhonchi or wheezes Cardio regular rate, regular rhythm, S1 normal heart sound, S2 normal heart sound, no murmurs, no rub, no gallops and no clicks GI normal to inspection, nondistended, normoactive bowel sounds, soft to palpation and non-tender Extremity no clubbing, cyanosis or edema Neuro oriented x3, CN's II-XII intact bilaterally, moves all extremities and no focal motor deficits Speech: speech normal Psych affect normal Psych Narrative: Very pleasant, interacts appropriately Assessment & Plan Assessment/Plan (1) SVT (supraventricular tachycardia): (2) Left basal ganglia embolic stroke: PLAN: Plan Left acute basal ganglia stroke -MRI done shows 7 mm foci of restricted diffusion in the superior left basal ganglia and left sheriff radiata and remote lacunar infarct in the left thalamus along with chronic small vessel disease -NIH as per protocol -Transition Pravachol to atorvastatin 80 daily -Uptitrate antihypertensives some for improved blood pressure control but allow for some hypertension -Continue aspirin and start Plavix 75 mg daily -Will event monitor at discharge -CTA of the head and neck unremarkable -Discontinue carotid Dopplers -Consult neurology SVT -Resolved in the emergency department -Suspect reentry AV kimo tachycardia next-Will require outpatient follow-up with cardiology -Event monitor at discharge -Continue increased dose of metoprolol -Echocardiogram done and showed a normal EF at 60% with no evidence of diastolic dysfunction and trivial mitral valve and aortic valve insufficiency -Cardiology following appreciate input Nausea and vomiting -Recent diagnosis of norovirus -Improving clinically -Contact precautions Uncontrolled hypertension -Changes made by cardiology plus will uptitrate lisinopril and hydrochlorothiazide -Continue to monitor Hyperlipidemia -Discontinue Pravachol and start atorvastatin DM-2 -Hold home medications -A1c is 6.9 -SSI -Accu-Cheks as ordered -Cardiac/carb controlled diet GERD -Continue home PPI Depression/anxiety -Continue home fluoxetine Tobacco abuse -Remote DVT prophylaxis -Lovenox subcu daily -CODE STATUS -Full code Charges/Coding Visit Charges Inpatient E&M: 22852 Subs Hosp L2
[2024-09-27] MEDS: Gabapentin 300 MG Capsule PO (20:06)
[2024-09-27] MEDS: Clopidogrel Bisulfate 75 MG Tablet PO (20:06)
[2024-09-27] MEDS: Atorvastatin Calcium 80 MG Tablet PO (20:06)
[2024-09-27] MEDS: traZODone 50 MG Tablet PO (20:06)
[2024-09-27 22:07] LABS: Bedside Glucose 146 mg/dL (74-106)
--- NOTE | 2024-09-27 22:38 | MRI_ITS ---
PROCEDURE: BRAIN WITHOUT CONTRAST REASON FOR EXAM: Confusion and syncope TECHNIQUE: Multiplanar, multisequence MRI of the brain without intravenous gadolinium-based contrast. CONTRAST: CT head 1 day prior. COMPARISON: None. FINDINGS: 7 mm focus of restricted diffusion at the superior left basal ganglia/left sheriff radiata. Finding consistent with subacute lacunar infarction although rarely a focus of active demyelination can produce restricted diffusion. No other restricted diffusion is seen. Remote lacunar infarct of the left thalamus is noted. A couple of T2 FLAIR hyperintensities along the superior ventricular bodies oriented perpendicular, either remote demyelinating plaques or remote lacunar infarctions. Mild chronic small-vessel disease. No hydrocephalus. Signal in the posterior suprasellar cistern region of the hypothalamus correlating with fat (intrinsic T1 hyperintensity) and dystrophic calcification, the latter better demonstrated on CT. Overall size is approximately 13 mm in AP dimension. Large artery flow voids are intact implying gross patency. Trace mucosal thickening in the left maxillary sinus. The globes are unremarkable. Normal mastoids. MRI/Brain without Contrast IMPRESSION: 1. 7 mm focus of restricted diffusion in the superior left basal ganglia/coron al radiata. This is most likely a subacute lacunar infarct although more rarely active demyelinating plaque can produce th is appearance. 2. 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 head yesterday. Reading Location: [facility]
[2024-09-28 03:50] VITALS: BP 116/57; PULSE 67; RESP 14; TEMP 37; O2SAT 99
[2024-09-28 05:11] VITALS: BMI 25.2
[2024-09-28 05:37] LABS: Absolute Lymphocyte Count 3.34 X10^3/uL (0.83-4.51); Absolute Neutrophil Count 6.1 X10^3/uL (2.0-7.7); Basophil# 0.04 X10^3/uL; Basophil% 0.4 % (0-1); Eosinophil# 0.11 X10^3/uL; Hematocrit 44.3 % (40-54); Hemoglobin 15.2 g/dL (13.0-16.5); Lymphocyte # 3.34 X10^3/ul (0.83-4.51); Lymphocyte % 31.2 % (19-41); Mean Corp Hgb Conc 34.3 g/dL (32-36); Mean Corpuscular Hgb 29.9 pg (27.0-32.0); Mean Corpuscular Volume 87.2 fL (80-94); Mean Platelet Vol. 9.8 fl (6.2-12.0); Monocyte# 1.07 X10^3/uL; NRBC Flagged by Analyzer 0 % (0-5); Neutrophil # 6.08 X10^3/uL (2.7-7.7); Neutrophil % 56.8 % (47-70); Platelet Count 316 K/mm3 (150-450); RBC Distribution Width CV 12.6 % (11.6-14.6); RBC Distribution Width SD 39.8 fl (35.1-43.9); Red Blood Count 5.08 M/mm3 (4.6-6.2); White Blood Count 10.7 K/mm3 (4.4-11.0)
[2024-09-28 05:55] LABS: Magnesium 2.2 mg/dL (1.5-2.2); Phosphorus 4.2 mg/dL (2.7-4.5)
[2024-09-28 06:00] LABS: Anion Gap 9 (5-15); BUN 20 mg/dL (4-19); BUN/Creat Ratio 16.7 RATIO (10-20); Calcium 8.8 mg/dL (7.6-11.0); Carbon Dioxide 26.9 mmol/L (22.0-29.0); Chloride 100 mmol/L (96-108); Creatinine, Serum 1.19 mg/dL (0.70-1.20); EST Glomerular Filtration Rate 69 (>60); Estimated Creatinine Clearance 63.07 ml/min; Glucose 150 mg/dL (70-99); Sodium Level 136 mmol/L (133-145)
[2024-09-28] MEDS: Insulin Lispro 100 UNIT/ML INSULN.PEN SC ×2 (06:44→11:35)
[2024-09-28 07:18] LABS: Bedside Glucose 163 mg/dL (74-106)
[2024-09-28 07:27] VITALS: BP 115/66; PULSE 75; RESP 14; TEMP 36.3; O2SAT 99
[2024-09-28 08:42] VITALS: O2SAT 96
[2024-09-28] MEDS: Enoxaparin 40 MG/0.4 ML Syringe SC (09:23)
[2024-09-28 09:24] VITALS: BP 119/64; PULSE 69
[2024-09-28] MEDS: FLUoxetine 20 MG Capsule PO (09:24)
[2024-09-28] MEDS: Metoprolol Tartrate 50 MG Tablet PO (09:24)
[2024-09-28] MEDS: Pantoprazole Sodium 40 MG Tablet PO (09:24)
[2024-09-28] MEDS: Lisinopril 40 MG Tablet PO (09:25)
[2024-09-28] MEDS: Clopidogrel Bisulfate 75 MG Tablet PO (09:25)
[2024-09-28] MEDS: Aspirin 81 MG TAB.CHEW PO (09:25)
--- NOTE | 2024-09-28 10:11 | PN.CARD_ITS ---
Subjective Subjective Patient was not evaluated [id number] today he is in isolation and I did discuss his situation with the nurse and reviewed his rhythm strips. The patient is echocardiogram done yesterday showed an ejection fraction of 60% with normal LV function RV was normal there was trivial valvular insufficiencies noted. The patient's echo was essentially benign. Patient heart rate is normal sinus rhythm at 68 bpm. He occasionally has some PVCs but he has had no SVT. The MRI was consistent with a stroke which probably explains some of the patient's confusion and other mental status changes. Further treatment is being discussed with neurology. Objective Data Vital Signs: Vital Signs Temp Pulse Resp BP Pulse Ox O2 Del Method 97.3 F L 69 14 119/64 96 Room Air 09/28/24 07:27 09/28/24 09:24 09/28/24 07:27 09/28/24 09:24 09/28/24 08:42 09/28/24 08:42 Oxygen Delivery Method Room Air Weight: 165 lb 9.074 oz Body Mass Index (BMI) 25.2 Intake & Output: Intake and Output for Last 24 Hours 09/26/24 09/27/24 09/28/24 23:59 23:59 23:59 Intake Total 1220 / 1220 1422.5 / 1422.5 0 / 0 Output Total 0 / 0 0 / 0 Balance 1220 / 1220 1422.5 / 1422.5 0 / 0 Lab / Micro Data Attestation: I reviewed the patient's lab results. 09/28/24 04:56 09/28/24 04:56 Labs: Laboratory Results - last 24 hr 09/27/24 11:30: POC Glucose 227 H 09/27/24 17:00: POC Glucose 145 H 09/27/24 21:47: POC Glucose 146 H 09/28/24 04:56: WBC 10.7, RBC 5.08, Hgb 15.2, Hct 44.3, MCV 87.2, MCH 29.9, MCHC 34.3, RDW Std Deviation 39.8, RDW Coeff of Celia 12.6, Plt Count 316, MPV 9.8, Immature Gran % (Auto) 0.600, Neut % (Auto) 56.8, Lymph % (Auto) 31.2, [place] % (Auto) 10.0, Eos % (Auto) 1.0, Baso % (Auto) 0.4, Absolute Neuts (auto) 6.1, Absolute Lymphs (auto) 3.34, Nucleated RBC % 0, Sodium 136, Potassium 4.0, Chloride Direct 100, Carbon Dioxide 26.9, Anion Gap 9, BUN 20 H, Creatinine 1.19, Estim Creat Clear Calc 63.07, Est GFR (MDRD) Non-Af 69, BUN/Creatinine Ratio 16.7, Glucose 150 H, Calcium 8.8, Phosphorus 4.2, Magnesium 2.2 09/28/24 06:43: POC Glucose 163 H Rhythm Strip Rhythm Strip: Sinus Rhythm Rate: 68 Ectopy: PVC(s) Cardiology Labs/Tests 09/28/24 04:56: WBC 10.7, RBC 5.08, Hgb 15.2, Hct 44.3, MCV 87.2, MCH 29.9, MCHC 34.3, Plt Count 316, MPV 9.8, Immature Gran % (Auto) 0.600, Neut % (Auto) 56.8, Lymph % (Auto) 31.2, [place] % (Auto) 10.0, Eos % (Auto) 1.0, Baso % (Auto) 0.4, Absolute Neuts (auto) 6.1, Nucleated RBC % 0, Sodium 136, Potassium 4.0, Carbon Dioxide 26.9, Anion Gap 9, BUN 20 H, Creatinine 1.19, Est GFR (MDRD) Non-Af 69, BUN/Creatinine Ratio 16.7, Glucose 150 H, Calcium 8.8, Phosphorus 4.2, Magnesium 2.2 Rhythm: EKG: ECHO: Stress Test: Cardiac Cath: PCI: CT Surgery: Holter monitor: EPS: PPM: CXR: Chest CT Scan: Radiography Diagnostic Testing: Radiology Impression Echocardiogram 09/26/24 22:38 Interpretation Summary The estimated ejection fraction is 60 %. No evidence for diastolic dysfunction. Trivial mitral valve insufficiency. Trivial aortic valve insufficiency. Ordering Physician: Delmer Dean Referring Physician: Delmer Dean Performed By: Colin Davenport [facility] Brain MRI 09/27/24 22:38 IMPRESSION: 1. 7 mm focus of restricted diffusion in the superior left basal ganglia/coronal radiata. This is most likely a subacute lacunar infarct although more rarely active demyelinating plaque can produce this appearance. 2. 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 head yesterday. Reading [facility] Assessment & Plan Assessment/Plan (1) SVT (supraventricular tachycardia): PLAN: Patient is had no recurrence of his SVT. I recommend continued treatment with the metoprolol 50 mg twice daily. The patient should follow-up with the [facility] in 1 to 2 months in the office and as needed. PLAN: Plan 1. From a cardiovascular standpoint no further recommendations at this point in time. 2. From a cardiovascular standpoint the patient can be discharged she should follow-up with the [place] [facility] in 1 to 2 months and as needed. Charges/Coding Visit Charges Inpatient E&M: 02779 [facility] [[email or web address]] Hosp L1
[2024-09-28 11:25] VITALS: BP 110/79; PULSE 64; RESP 14; TEMP 36.6; O2SAT 100
[2024-09-28 12:24] LABS: Bedside Glucose 174 mg/dL (74-106)
--- NOTE | 2024-09-28 13:19 | CASEMGMT ---
Social Work Per physician, pt positive for stroke. SW met with pt and completed PHQ9 depression screen. Pt with score of 4 indicating minimal depression. Pt denies any concerns at this time. HCERYL Alexander
--- NOTE | 2024-09-28 13:55 | DS.PCM_ITS ---
Providers Date of Admission: 09/26/24 Date of Discharge: 09/28/24 Primary Care Physician: Dr. Enrique Valenzuela MD Consultations 09/26/24 22:38 Consult: Cardiology Routine Consulting Provider: Igor Liang Reason for Consult: Reentrant tachycardia with uncontrolled hypertension and near syncope. EMERGENT Consult: No MD Notified: Yes Date Notified: 09/26/24 Time Notified: 21:51 Method of Notification: ED Physician Initiated 09/27/24 14:37 Consult: Tele-Neurology Routine Consulting Provider: [facility] Reason for Consult: stroke EMERGENT Consult: No MD Notified: Yes Date Notified: 09/27/24 Time Notified: 16:43 Method of Notification: Answering Service Nursing Unit Staff Notify [facility] of Tele-Neurology Consult: Yes Reason For Visit: REENTRANT TACHYCARDIA, UNCONTROLLED HTN AND Diagnosis Discharge Diagnosis (1) SVT (supraventricular tachycardia): Status: Acute Code(s): I47.10 - Supraventricular tachycardia, unspecified Medications at Discharge Home Medications metformin 500 mg tablet,extended release 24 hr 1,000 mg PO DAILY diabetes 09/07/17 ondansetron 4 mg disintegrating tablet 4 mg PO Q8H PRN PRN Nausea #10 tabs 01/14/21 fluoxetine 10 mg capsule (Prozac) 20 mg PO DAILY mental health 02/05/21 gabapentin 300 mg capsule 300 mg PO QHS nerve pain 09/26/24 pantoprazole 40 mg tablet,delayed release 40 mg PO BID reflux 09/26/24 semaglutide 0.25 mg or 0.5 mg (2 mg/3 mL) subcutaneous pen injector (Ozempic) 0.25 mg subcut QWEEK diabetes 09/26/24 trazodone 50 mg tablet 50 mg PO DAILY Sleep 09/26/24 aspirin 325 mg tablet 325 mg PO DAILY #1 TAB 09/28/24 atorvastatin 80 mg tablet 80 mg PO QHS #30 tabs 09/28/24 clopidogrel 75 mg tablet 75 mg PO DAILY #21 tabs 09/28/24 lisinopril 40 mg tablet 40 mg PO DAILY #30 tabs 09/28/24 metoprolol tartrate 50 mg tablet 50 mg PO BID #60 tabs 09/28/24 Hospital Course Operations None Procedures 2-D Echocardiogram, EKG and - (CT brain, CTA head and neck, MRI brain, chest x- ray) Summary of Care Provided Minutes Spent on Discharge: 39 Hospital Course: Mr. Powell is a 59-year-old white male who presented to emergency department at [facility] on 09/26/2024 with dizziness and confusion. Patient reported he been having some nausea vomiting and diarrhea for the last several days prior to presentation after several family members had GI illness. Symptoms had resolved but earlier in the day of presentation his checked on him at about 6 PM and found that he was not following commands and was confused. He felt dizzy and was lightheaded and felt like he may pass out. He was brought to emergency department and his reported that he had also passed out a few days prior to presentation but that had no injuries. He also complained of headache and difficulty walking with lightheadedness and had trouble following commands. Stroke was called the emergency department. Initial vital signs in the emergency department showed temperature of 98.1, heart rate 107, respiratory 16, blood pressure was 88/76 with a repeat after IV fluids of 184/104 and pulse ox was 100% on room air. While he was in the emergency department he had a sudden onset of SVT with heart rates in the 160 range that was narrow complex and regular. This lasted about 10 seconds and was not captured on EKG however reentry tachycardia was suspected and beta-johnny was added on admission. CBC on presentation was unremarkable other than some hemoconcentration with a hemoglobin of 16.9 and this normalized during his hospitalization. Coags were normal. Chemistry was unremarkable other than glucose at 181 and patient is a known diabetic. Liver functions are unremarkable. Troponin was unremarkable. Cholesterol was obtained however LDL was not reported. Total cholesterol was 140 with an HDL of 34 and triglyceride of 140. TSH was within normal limit. Lipase was normal at 28. EKG we obtained a sinus rhythm without any ST-T wave changes concerning for acute ischemia and normal intervals. CT of the brain was unremarkable for any acute findings. CTA of the head and neck was negative for any stenosis or LVO. Chest x-ray was unremarkable. He was admitted to the telemetry floor for stroke workup and monitor on telemetry due to his SVT. The case was discussed with cardio and was evaluated. Echocardiogram was done while hospitalized and showed an EF of 60% with no diastolic dysfunction and trivial mitral valve and aortic valve insufficiency. Cardiology advised that we put him on a beta-johnny and he was placed on 50 mg of metoprolol twice daily. We also uptitrated his lisinopril from 20 to 40 mg was hospitalized due to ongoing elevated blood pressures. We did request that if his blood pressures were consistently less than 100 systolic to back off on his lisinopril and cut his dose in half to 20 mg. He is to keep track of his blood pressures daily at home and present into his primary care doctor after discharge. MRI was performed for stroke workup and he was found to have a acute/subacute lacunar infarct in the superior left basal ganglia and sheriff radiata as well as a dermoid cyst in the midline suprasellar cistern on in the region of the hypothalamus that was 13 mm. During his hospitalization since there was stroke concern he was placed on aspirin 81 mg, Plavix 75 mg, high intensity dose statin with atorvastatin 80 mg daily and neurology evaluated the patient. They recommended neurosurgery evaluation for the dermoid cyst that was noted on imaging and patient intends to follow-up at [facility] for this. With regards to his stroke, 325 mg of aspirin was recommended daily with dual antiplatelet therapy for 21 days with Plavix 75 mg daily. He is to continue high intensity of statin and repeat lipids in 6 weeks. We have advised that he follow-up with neurology they would like to follow-up in [place]. He is also to follow-up with cardiology in about a month. At that time he will of completed an event monitor to assess for any further SVT or atrial fibrillation. Patient was able to be discharged home in stable condition on 09/29/2023. Again he was to follow-up with his PCP in 1 to 2 weeks, neurology and neurosurgery as available and cardiology in the next 4 weeks. 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, region of the hypothalamus, 13 mm SVT Nausea vomiting-resolved Uncontrolled hypertension Hyperlipidemia DM-2-A1c is 6.9 GERD Depression Anxiety History of tobacco abuse Physical Exam Const alert, oriented x3, no apparent distress, average body habitus, no limitations, healthy appearing and well nourished Constitutional Narrative: Middle-aged, white male, sitting up in bed, appears comfortable, at bedside, nontoxic General Appearance: cooperative, comfortable, well kempt and well developed Exam Limitations: no limitations HEENT normocephalic, head/scalp atraumatic, hearing grossly normal bilaterally and moist oral mucous membranes HEENT Narrative: Mallampati 2, no thrush Eyes EOMs intact bilaterally Eyes Narrative: No scleral icterus Neck supple Neck Narrative: Trachea midline Resp normal respiratory effort, no retractions, no use of accessory muscles and clear to auscultation bilaterally Auscultation: Negative for rales, rhonchi or wheezes Cardio regular rate, regular rhythm, S1 normal heart sound, S2 normal heart sound, no murmurs, no rub, no gallops and no clicks GI normal to inspection, nondistended, normoactive bowel sounds, soft to palpation and non-tender Extremity no clubbing, cyanosis or edema Extremity Narrative: Pedal and radial pulses are 2+ Skin skin turgor normal, no jaundice, no petechiae and no mottling Neuro oriented x3, moves all extremities and no focal motor deficits Speech: speech normal Psych affect normal Psych Narrative: Very pleasant, interacts appropriately Weight / BMI Weight Weight: 75.1 kg Body Mass Index (BMI) 25.2 ABG / Lab / Microbiology Data 09/28/24 04:56 09/28/24 04:56 Laboratory: Laboratory Results - last 24 hr 09/27/24 17:00: POC Glucose 145 H 09/27/24 21:47: POC Glucose 146 H 09/28/24 04:56: WBC 10.7, RBC 5.08, Hgb 15.2, Hct 44.3, MCV 87.2, MCH 29.9, MCHC 34.3, RDW Std Deviation 39.8, RDW Coeff of Celia 12.6, Plt Count 316, MPV 9.8, Immature Gran % (Auto) 0.600, Neut % (Auto) 56.8, Lymph % (Auto) 31.2, [place] % (Auto) 10.0, Eos % (Auto) 1.0, Baso % (Auto) 0.4, Absolute Neuts (auto) 6.1, Absolute Lymphs (auto) 3.34, Nucleated RBC % 0, Sodium 136, Potassium 4.0, Chloride Direct 100, Carbon Dioxide 26.9, Anion Gap 9, BUN 20 H, Creatinine 1.19, Estim Creat Clear Calc 63.07, Est GFR (MDRD) Non-Af 69, BUN/Creatinine Ratio 16.7, Glucose 150 H, Calcium 8.8, Phosphorus 4.2, Magnesium 2.2 09/28/24 06:43: POC Glucose 163 H 09/28/24 11:32: POC Glucose 174 H Radiography Diagnostic Testing: Radiology Impression Echocardiogram 09/26/24 22:38 Interpretation Summary The estimated ejection fraction is 60 %. No evidence for diastolic dysfunction. Trivial mitral valve insufficiency. Trivial aortic valve insufficiency. Ordering Physician: Delmer Dean Referring Physician: Delmer Dean Performed By: Colin Davenport RCS D/C Instructions Discharge Diet: Low fat / Low cholesterol and 1800 Calorie Control Diet Discharge Activity: Return to Normal Activity Return to work on: 09/30/24 DC O2, CPAP, BIPAP Needs Home O2 Discharge instructions: No Meaningful Use Info Meaningful Use Meaningful Use Diagnoses (Choose all that apply): Ischemic CVA CVA Therapy Assessed for PT,OT and/or ST?: Yes Ischemic Stroke Antithrombotic order at d/c?: Yes Dx of Atrial fib/flutter?: No Statin Dosing Therapy Reference: STATIN DOSE THERAPY REFERENCE: * Patients > 75 years receive moderate or high dose statin therapy. * Patients 75 years or YOUNGER should receive HIGH intensity statin dose unless contraindicated. You will be required to document reason for non-treatment if statin daily dose does not meet guidelines. HIGH DOSE STATIN THERAPY DAILY Atorvastatin > than or = to 40 mg Rosuvastatin > than or = to 20 mg Amlodipine + Atorvastatin > than or = to 2.5/40 mg Ezetimibe + Simvastatin 10/80 mg Simvastatin 80mg Statins at discharge?: Yes If patient is 75 or younger, pt will be discharged on HIGH intensity statin.: Y es Primary Dx Acute Ischemic CVA?: Yes Discharge Plan Admission Admit Date/Time: 09/26/24 21:46 Primary Reason for Your Visit: confusion Attending Provider: Kassy Phan Primary Care Provider: Enrique Valenzuela Consulting Providers: Igor Liang; Delmer Dean; Niko Jade; Slim Burt; Geri Maza; Soumya Harrison; Nataliia Asencio; Juve Link; Shaye Cisneros; Zeus Reyes; Nathan Luo; Varinder Guevara; Leeanne Lai; Sebastian Buckner; Apryl Prince; Gerri Mckeon; Kaya Heller; Ashok Webb; Yamileth Pompa; Rohan Taylor; Elham Phan; Daniel Saavedra Instructions Forms: Work / School Excuse Additional Instructions / Restrictions: 1. Please follow-up with neurologist and neurosurgery as recommended per your desires for physician 2. Check blood pressure daily and keep track. 3. If your blood pressure is consistently less than 100 on the top number decrease your lisinopril from 1 whole tablet 40 mg to 1/2 tablet 20 mg Discharge Orders/Prescriptions Prescriptions: New atorvastatin 80 mg Tablet 80 mg PO QHS Qty: 30 1RF clopidogrel 75 mg Tablet 75 mg PO DAILY Qty: 21 0RF lisinopril 40 mg Tablet 40 mg PO DAILY Qty: 30 1RF metoprolol tartrate 50 mg Tablet 50 mg PO BID Qty: 60 1RF aspirin 325 mg tablet 325 mg PO DAILY Qty: 1 0RF Continued metformin 500 MG tablet 1,000 mg PO DAILY Patient Comments: take 2 tablets by mouth once daily with BREAKFAST ondansetron 4 MG tablet 4 mg PO Q8H PRN PRN (Reason: Nausea) Qty: 10 0RF fluoxetine [Prozac] 10 mg Capsule 20 mg PO DAILY pantoprazole 40 mg tablet,delayed release (DR/EC) 40 mg PO BID gabapentin 300 mg capsule 300 mg PO QHS trazodone 50 mg tablet 50 mg PO DAILY Ozempic 0.25 mg or 0.5 mg (2 mg/3 mL) pen injector 0.25 mg subcut QWEEK Discontinued pravastatin 20 MG tablet 20 mg PO DAILY Patient Comments: take 1 tablet by mouth once daily at bedtime aspirin 81 mg tablet,chewable 1 tab PO DAILY lisinopril 20 mg tablet 20 mg PO DAILY hydrochlorothiazide 12.5 mg capsule 12.5 mg PO DAILY Other Ambulatory Orders: 30 Day Event Recorder Preventi (Urgent) Timeframe: 1 Day Facility: [facility] - Location: Cardiovascular Services Ordered By: Dr. Kassy Phan Referrals / Follow Up: Enrique Valenzuela MD [Primary Care Provider] - Within 2 Weeks Igor Liang MD [Med Staff - Active Staff] - Within 1 Month Haroon Wolf MD [Non-Staff -Ordering Privileges] - Within 1 Month (post hospital stroke f/u) Disposition Disposition (needs filled in before D/C Order can be placed): Home, Self Care Charges/Coding Visit Charges Inpatient E&M: 16837 Disch Hosp >30min
--- NOTE | 2024-09-28 14:59 | PN.NEURO_ITS ---
Assessment and Plan: Neuro Assessment/Plan 59 y/o man with h/o HTN, orthostatic hypotension, POTS p/w dizziness and confusion along with viral GI illness. The ER physician was informed by the that the patient did pass out a few days ago but did not hit his head or have any other significant injury. He also admits to headache and difficulty walking with lightheadedness and trouble with following commands. He denies associated fever, chills, changes in vision, chest pain, shortness of breath, cough, abdominal pain, dysuria, back pain or any residual issues related to nausea, vomiting or diarrhea. MRI Brain - left BG/CR stroke along with dermoid cyst in suprasellar cistern. CTA- no LVO. A1c-6.9. Diagnosis: left BG/CR stroke, cryptogenic Plan: ASA and plavix for 3 weeks followed by ASA only along with statin. Event monitor on discharge. 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 For dermoid cyst, follow up with neurosurgery as an outpatient. I personally attended this patient and spent a total time of 30 minutes evaluating this patient including clinical assessment, review of chart, medical history imaging, and determining appropriate treatment and workup. Subject: Neurology Subjective No acute events overnight. Today, patient reports feeling better with NIHSS-0. NIHSS NIHSS Nursing Documentation NIHSS Nursing Documentation: NIHSS: Ischemic Stroke/TIA Start: 09/26/24 23:02 Freq: [id number] Status: Active Protocol: Activity Type Activity Date Activity User E-sign Co-sign Detail Recorded Client Recorded Date Recorded By Document 09/28/24 11:25 DS [id number] 09/28/24 11:49 DS 09/28/24 11:25 NIH Stroke Scale [NIHSS] A score of 0 is normal or asymptomatic . Total possible score is 42. Inpatient: RN or Physician to activate a stroke alert for onset of new stroke symptoms or with NIHSS increase >/= 3 points. Following change in neurological status, NIHSS will be performed per physician order or more frequently PRN. -1a. Level of Consciousness Alert; keenly responsive -1b. LOC Questions Answers BOTH questions correctly. -1c. LOC Commands Performs both tasks correctly . -2. Best Gaze Normal -3. Visual No visual loss -4. Facial Palsy Normal symmetrical movements -5a. Left Arm No drift; arm holds 90 (or 45 ) degrees for full 10 seconds -5b. Right Arm No drift; arm holds 90 (or 45 ) degrees for full 10 seconds -6a. Left Leg No drift; leg holds 30-degree position for full 5 seconds -6b. Right Leg No drift; leg holds 30-degree position for full 5 seconds -7. Limb Ataxia Absent -8. Sensory Normal; no sensory loss -9. Best Language No aphasia; normal -10. Dysarthria Normal -11. Extinction and Inattention No abnormality -Total 0 Query Text:A score of 0 is normal or asymptomatic. Total possible score is 42 . ED: Notify Physician for NIHSS increase by > / = 3 points. Inpatient: RN or Physician to activate a stroke alert for NIHSS increase of > / = 3 points. Coma Scale [Assess] -Eye Opening Spontaneous -Motor Obeys Commands -Verbal Oriented [Total] -Coma Scale Total 15 NIHSS 1b. LOC Questions: Answers BOTH questions correctly. 1c. LOC Commands: Performs both tasks correctly. 2. Best Gaze: Normal 3. Visual: No visual loss 4. Facial Palsy: Normal symmetrical movements 5a. Left Arm: No drift; arm holds 90 (or 45) degrees for full 10 seconds 5b. Right Arm: No drift; arm holds 90 (or 45) degrees for full 10 seconds 6a. Left Leg: No drift; leg holds 30-degree position for full 5 seconds 6b. Right Leg: No drift; leg holds 30-degree position for full 5 seconds 7. Limb Ataxia: Absent 8. Sensory: Normal; no sensory loss 9. Best Language: No aphasia; normal 10. Dysarthria: Normal 11. Extinction and Inattention: No abnormality Total: 0 EEG Results Procedure Details EEG Procedure Details: OLIVIER PATRICK is a 59 year old M with a past medical history of , who presents for evaluation of Electroencephalogram on DATE at TIME Objective Data Objective Data Vital Signs: Vital Signs Temp Pulse Resp BP Pulse Ox O2 Del Method 98 F 64 14 110/79 100 Room Air 09/28/24 11:25 09/28/24 11:25 09/28/24 11:25 09/28/24 11:25 09/28/24 11:25 09/28/24 11:25 Oxygen Delivery Method Room Air Weight: 75.1 kg Body Mass Index (BMI) 25.2 Intake & Output: Intake and Output for Last 24 Hours 09/26/24 09/27/24 09/28/24 23:59 23:59 23:59 Intake Total 1220 / 1220 1422.5 / 1422.5 1147.5 / 1147.5 Output Total 0 / 0 0 / 0 Balance 1220 / 1220 1422.5 / 1422.5 1147.5 / 1147.5 Lab / Micro Data 09/28/24 04:56 09/28/24 04:56 Labs: Laboratory Results - last 24 hr 09/27/24 17:00: POC Glucose 145 H 09/27/24 21:47: POC Glucose 146 H 09/28/24 04:56: WBC 10.7, RBC 5.08, Hgb 15.2, Hct 44.3, MCV 87.2, MCH 29.9, MCHC 34.3, RDW Std Deviation 39.8, RDW Coeff of Celia 12.6, Plt Count 316, MPV 9.8, Immature Gran % (Auto) 0.600, Neut % (Auto) 56.8, Lymph % (Auto) 31.2, [place] % (Auto) 10.0, Eos % (Auto) 1.0, Baso % (Auto) 0.4, Absolute Neuts (auto) 6.1, Absolute Lymphs (auto) 3.34, Nucleated RBC % 0, Sodium 136, Potassium 4.0, Chloride Direct 100, Carbon Dioxide 26.9, Anion Gap 9, BUN 20 H, Creatinine 1.19, Estim Creat Clear Calc 63.07, Est GFR (MDRD) Non-Af 69, BUN/Creatinine Ratio 16.7, Glucose 150 H, Calcium 8.8, Phosphorus 4.2, Magnesium 2.2 09/28/24 06:43: POC Glucose 163 H 09/28/24 11:32: POC Glucose 174 H Rhythm Strip Rhythm Strip: Sinus Rhythm Rate: 68 Ectopy: PVC(s) Physical Exam Narrative General: The patient appears nutritionally appropriate, well-groomed, and appears comfortable in no acute distress. Mental Status:? The patient?s mental status was normal including orientation.? Language was intact.? Cranial nerves:? Visual boyd full, and extra-ocular motion was intact. Symmetric face. Motor: Normal strength in all extremities. Sensation: Intact to touch in all extremities.? Coordination:? Bilateral finger to nose was normal.? There was no dysmetria. Gait:? deferred.
[2024-09-28 15:28] VITALS: BP 110/74; PULSE 70; RESP 14; TEMP 36.6; O2SAT 100
[2024-09-28 15:31] VITALS: BMI 25.2
[2024-09-29 14:07] LABS: Folate, RBC (Hct) Test 49.5 % (37.5-51.0); Folates, RBC Test 863 ng/mL (>498)
== END 2024-09-28 14:58 | disposition home or self-care (01) ==
LOC: ED 21:18 → PCU 22:20
PROVIDERS: Admitting Provider Internal Medicine; Emergency Provider Emergency Medicine; PCP Family Medicine; Referring Provider Internal Medicine; Visit Provider Internal Medicine
DX: I63.9 Cerebral infarction, unspecified (principal); D33.2 Benign neoplasm of brain, unspecified; E11.40 Type 2 diabetes mellitus with diabetic neuropathy, unspecified; I47.10 Supraventricular tachycardia, unspecified; F32.A Depression, unspecified; K21.9 Gastro-esophageal reflux disease without esophagitis; R41.0 Disorientation, unspecified; I49.3 Ventricular premature depolarization; R29.700 NIHSS score 0; R26.2 Difficulty in walking, not elsewhere classified; I10 Essential (primary) hypertension; Z87.891 Personal history of nicotine dependence; E78.00 Pure hypercholesterolemia, unspecified; F41.9 Anxiety disorder, unspecified; Z79.84 Long term (current) use of oral hypoglycemic drugs; Z79.82 Long term (current) use of aspirin; Z79.899 Other long term (current) drug therapy
CPT/HCPCS: 36415; 70450; 70496; 70498; 70551; 71045; 80048; 80053; 80061; 80307; 81001; 82607; 82747; 82962; 83036; 83690; 83735; 84100; 84439; 84443; 84481; 84484; 85014; 85025; 85610; 85730; 93005; 93306; 96361; 96372; 96374; 99221; 99285; A4216; G0378; J2405

== ENCOUNTER → 2025-04-14 | Outpatient (CLI) | payer OTHER, SELFPAY ==
--- NOTE | 2025-04-14 11:16 | MRI_ITS ---
PROCEDURE: MRI BRAIN WITHOUT CONTRAST 04/14/2025 REASON FOR EXAM: DERMOID CYST. BENIGN NEOPLASM,UNSPECIFIED SITE TECHNIQUE: Procedure Code: MRIBR Modality: MR Procedure: BRAIN WITHOUT CONTRAST Multiplanar and multisequential MRI of the brain was performed without contrast. COMPARISON: Brain MRI 09/27/2024, CT 09/26/2024. FINDINGS: Unchanged small T1 hyperintense benign fat containing dermoid lesion/cyst in the posterior aspect of suprasellar cistern dorsal to the pituitary infundibulum and just beneath the mammillary bodies at the midline, measuring up to 12 mm. Marginal calcification shown on prior CT. No significant mass-effect. Normal ventricular caliber. Expected evolution of late subacute lacunar infarct in the left frontal sheriff radiata white matter, with less prominent diffusion restriction since prior exam. No interval new infarct. Mild chronic small-vessel ischemic-gliotic changes elsewhere in the supratentorial white matter with several additional small foci of chronic lacunar infarcts involving the bilateral sheriff radiata and basal ganglia, including the left thalamus. No evidence of acute intracranial hemorrhage or extra-axial collection. Normal ventricular caliber. Preserved major intracranial vascular flow voids. Grossly unremarkable orbits. Well-aerated paranasal sinuses and bilateral mastoid air cells. MRI/Brain without Contrast IMPRESSION: Expected evolution of late subacute lacunar infarct in the left frontal sheriff radiata. Otherwise stable chronic small-vessel ischemic changes with several old lacunar infarcts involving the bilateral gutierrez na radiata and basal ganglia. No interval new infarct or other acute intracranial abnormality. Stable small 12 mm benign dermoid lesion/cyst at the posterior suprasellar cist shyam. Reading Location: [facility]
== END | disposition home or self-care (01) ==
LOC: OPMRI 11:09
PROVIDERS: PCP Family Medicine; Referring Provider Psychiatry & Neurology Neurology; Visit Provider Psychiatry & Neurology Neurology
DX: D36.9 Benign neoplasm, unspecified site (principal)
CPT/HCPCS: 70551